=== PATIENT | female | born 1935 | race Caucasian/White ===

== ENCOUNTER 2022-08-18 13:01 | Outpatient (CLI) | payer MEDICARE, SELFPAY ==
--- NOTE | 2022-08-18 15:00 | CRLHL7_ITS ---
For Patients: As a result of the Century Cures Act, medical imaging exams and procedure reports are released immediately into your electronic medical record. You may view this report before your referring provider. If you have questions, please contact your health care provider. BILATERAL SCREENING MAMMOGRAM WITH COMPUTER-AIDED DETECTION TECHNIQUE: CC and MLO views were obtained. These mammographic images have been obtained using full-field digital technique. These mammographic images were interpreted with the benefit of computer-aided detection. COMPARISON FILM: [place]. FINDINGS: There are scattered areas of fibroglandular density IMPRESSION: There is no radiographic evidence for malignancy. ASSESSMENT: BI-RADS Category 1: Negative RECOMMENDATION: Routine screening mammogram in 1 year. A lay language report of this examination will be provided to the patient. Luis Regan M.D. Diagnostic Radiologist [email or web address] be/Dictated by: Luis Regan MD @ 09/08/2022 9:24:00 AM (Electronically Signed)
== END 2022-08-18 13:02 | disposition home or self-care (01) ==
LOC: MAMMO 13:05
PROVIDERS: PCP Internal Medicine; Visit Provider Internal Medicine
DX: Z12.31 Encounter for screening mammogram for malignant neoplasm of breast (principal)
CPT/HCPCS: 77067

== ENCOUNTER 2022-10-10 09:48 | Outpatient (CLI) | payer MEDICARE, SELFPAY ==
[2022-10-10 12:11] LABS: Albumin* 4.6 g/dL (3.3-5.0)
[2022-10-10 12:12] LABS: Chloride* 105 mmol/L (96-114); Potassium* 4.5 mmol/L (3.6-5.1); Sodium* 142 mmol/L (135-149)
[2022-10-10 12:14] LABS: Aspartate Amino Transferase* 39 U/L (12-35); Bilirubin Total* 0.5 mg/dL (0.1-1.5); Carbon Dioxide* 31 mmol/L (20-32); Creatinine* 0.7 mg/dL (0.5-1.5); Estimated Glomerular Filt Rate 85 ml/min; Total Protein* 7.1 g/dL (6.0-8.3)
[2022-10-10 12:15] LABS: Alanine Aminotransferase* 44 U/L (4-35); Alkaline Phosphatase* 94 U/L (40-150); Blood Urea Nitrogen* 22 mg/dL (7-30); Calcium* 10.4 mg/dL (8.4-10.6); Glucose* 117 mg/dL (60-115)
== END 2022-10-10 09:49 | disposition home or self-care (01) ==
PROVIDERS: PCP Internal Medicine; Visit Provider Internal Medicine
DX: E11.9 Type 2 diabetes mellitus without complications (principal); F41.9 Anxiety disorder, unspecified; E78.5 Hyperlipidemia, unspecified; G62.9 Polyneuropathy, unspecified
CPT/HCPCS: 80053; 84439; 84443

== ENCOUNTER 2023-04-18 14:21 | Emergency (ER) | payer MEDICARE, SELFPAY ==
[2023-04-18] VITALS (98 sets, daily range): BP systolic 78–180; BP diastolic 47–144; PULSE 47–154; RESP 18; TEMP 36.4; O2SAT 90–97
[2023-04-18] MEDS: ADENOSINE 6 MG/2ML INJ IVP (14:50)
[2023-04-18] MEDS: dilTIAZem 5 MG/ML inj 20 MG IVP (14:59)
--- NOTE | 2023-04-18 15:26 | ED.ARRPALP ---
HPI - Arrhythmia/Palpitations General Chief Complaint: Arrhythmia/Palpitations Stated Complaint: Heart flutter, dizzy Time Seen by Provider: 04/18/23 14:41 Source: patient Mode of arrival: ambulatory Limitations: no limitations History of Present Illness HPI narrative: Patient is a 89 year female with unknown if she does have proximal AFib but she is on Eliquis presenting to the emergency department for chest pressure and fatigue. She states symptoms have been going on all days and not getting better she can emergency department to be evaluated. This is a pressure sensation denies shortness of breath, weakness, numbness, abdominal pain, headache, lightheadedness, dizziness. Denies ever having symptoms like this before. States she was told before that she has AFib and a stolen O times she does not so she is not sure she does have it Related Data Home Medications Medication Instructions Recorded Confirmed coenzyme Q10 30 mg capsule mg PO DAILY 03/29/22 04/11/23 ferrous sulfate 325 mg (65 mg mg PO DAILY 03/29/22 04/11/23 iron) tablet CQ10 110 mg PO DAILY 10/10/22 04/11/23 Vitamin C 65 mg PO DAILY 10/10/22 04/11/23 melatonin 5 mg capsule 5 mg PO .HS PRN 10/10/22 04/11/23 multivitamin 1 tab PO QAM 10/10/22 04/11/23 vit C 250 mg-vit E 90 mg-zinc 40 1 tab PO BID 01/11/23 04/11/23 mg-copper 1 aq-bremgb-oxhcgf capsule (PreserVision AREDS-2) Previous Rx's Medication Instructions Recorded sulfacetamide sodium (acne) 10 % 1 applic topical BID #118 mL 03/29/22 lotion (suspension) (Klaron) minocycline 100 mg capsule 100 mg PO BID #180 caps 07/12/22 metoprolol succinate 25 mg 25 mg PO DAILY #90 tabs 10/18/22 tablet,extended release 24 hr rosuvastatin 40 mg tablet 40 mg PO DAILY Hyperlipidemia #90 10/25/22 tabs nirmatrelvir 150 mg-ritonavir 100 See Rx Instructions PO PER PKG DIR 01/11/23 mg tablets in a dose pack COVID 19 #20 ea (Paxlovid) apixaban 5 mg tablet 5 mg PO BID Atrial Fibrillation 05/25/23 #180 tabs Allergies Allergy/AdvReac Type Severity Reaction Status Date / Time No Known Allergies Allergy Unknown Verified 04/11/23 10:31 Review of Systems Status of ROS: Reports: 10 or more systems reviewed and unremarkable except as noted in History and below 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 - Articular disc disorder of temporomandibular joint, unspecified side (ICD-10) Health care maintenance ?Z00.00 - Encounter for general adult medical examination without abnormal findings (ICD-10) Surgical History (Updated 05/17/22 @ 13:22 by Giselle Cedillo) 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 - Presence of unspecified artificial shoulder joint (ICD-10) History of hysterectomy ?Z90.710 - Acquired absence of both cervix and uterus (ICD-10) History of bunionectomy ?Z98.890 - Other specified postprocedural states (ICD-10) Social History Smoking Status: Never smoker Non-prescribed substance use: denies use Little interest or pleasure in doing things: several days Feeling down, depressed, or hopeless: nearly every day Exam Narrative: Exam Narrative: Const: Well-nourished, Well-developed, in mild distress Eyes: PERRL, no conjunctival injection, and symmetrical lids ENMT: Atraumatic external nose and ears. Moist mucous membranes. Neck: Symmetric, trachea midline, No thyromegaly. CVS: Tachycardia, No murmurs or gallops. Peripheral pulses 2+ and equal in all extremities RESP: Unlabored respiratory effort. Clear to auscultation bilaterally. GI: Nontender/Nondistended, No rebound or guarding. MSK:Extremities w/o deformity, Normal Active ROM Skin: Warm, Dry. No rashes or lesions. Neuro: Normal Muscle tone, No focal neurological deficits. Psych: Awake, Alert, & Oriented x3. Appropriate mood and affect. Const: Vital Signs, click to edit/add: Vital Signs - 24 hr 04/18/23 14:36 04/18/23 14:57 04/18/23 14:58 Temperature 97.6 F Pulse Rate 139 H 105 H Pulse Rate [Left P ulse Oximeter] 140 H Respiratory Rate 18 Blood Pressure 171/144 H Blood Pressure [Le ft Upper Arm] 143/112 H Pulse Oximetry 93 92 94 Oxygen Delivery Me thod Room Air 04/18/23 14:59 04/18/23 15:00 04/18/23 15:02 Temperature Pulse Rate 109 H 154 H 120 H Pulse Rate [Left P ulse Oximeter] Respiratory Rate Blood Pressure 177/100 H 142/109 H Blood Pressure [Le ft Upper Arm] Pulse Oximetry 93 95 96 Oxygen Delivery Me thod 04/18/23 15:03 04/18/23 15:10 04/18/23 15:18 Temperature Pulse Rate 79 92 81 Pulse Rate [Left P ulse Oximeter] Respiratory Rate Blood Pressure 131/110 H Blood Pressure [Le ft Upper Arm] Pulse Oximetry 93 92 95 Oxygen Delivery Me thod 04/18/23 15:20 04/18/23 15:22 04/18/23 15:30 Temperature Pulse Rate 116 H 110 H 112 H Pulse Rate [Left P ulse Oximeter] Respiratory Rate Blood Pressure 123/70 Blood Pressure [Le ft Upper Arm] Pulse Oximetry 93 94 95 Oxygen Delivery Me thod 04/18/23 15:33 04/18/23 15:40 04/18/23 15:42 Temperature Pulse Rate 89 120 H 103 H Pulse Rate [Left P ulse Oximeter] Respiratory Rate Blood Pressure 137/95 H 139/113 H Blood Pressure [Le ft Upper Arm] Pulse Oximetry 95 97 93 Oxygen Delivery Me thod 04/18/23 15:50 04/18/23 15:52 04/18/23 15:59 Temperature Pulse Rate 80 96 Pulse Rate [Left P ulse Oximeter] Respiratory Rate Blood Pressure 156/68 H Blood Pressure [Le ft Upper Arm] Pulse Oximetry 92 92 95 Oxygen Delivery Me thod 04/18/23 16:00 04/18/23 16:02 Temperature Pulse Rate 93 89 Pulse Rate [Left P ulse Oximeter] Respiratory Rate Blood Pressure 157/69 H Blood Pressure [Le ft Upper Arm] Pulse Oximetry 92 94 Oxygen Delivery Me thod Course Vital Signs Vital signs: Initial Vital Signs Temperature 97.6 F 04/18/23 14:36 Temperature Source Temporal Artery Scan 04/18/23 14:36 Pulse Rate 140 H 04/18/23 14:36 Pulse Rhythm Irregular 04/18/23 14:36 Respiratory Rate 18 04/18/23 14:36 Blood Pressure 143/112 H 04/18/23 14:36 Blood Pressure Mean 122 H 04/18/23 14:36 Blood Pressure Position Sitting 04/18/23 14:36 Pulse Oximetry 93 04/18/23 14:36 Oxygen Delivery Method Room Air 04/18/23 14:36 Vital Signs Temperature 97.6 F 04/18/23 14:36 Pulse Rate 140 H 04/18/23 14:36 Respiratory Rate 18 04/18/23 14:36 Blood Pressure 143/112 H 04/18/23 14:36 Pulse Oximetry 93 04/18/23 14:36 Oxygen Delivery Method Room Air 04/18/23 14:36 Temperature 97.6 F 04/18/23 14:36 Pulse Rate 89 04/18/23 16:02 Respiratory Rate 18 04/18/23 14:36 Blood Pressure 157/69 H 04/18/23 16:02 Pulse Oximetry 94 04/18/23 16:02 Oxygen Delivery Method Room Air 04/18/23 14:36 MDM - Arrhythmia/Palpitations MDM Narrative Medical decision making narrative: Patient is a 87-year-old female is on clear history of AFib but she is on Eliquis. She is having chest pressure and fatigue. She 1st arrived emergency department her heart rate was in the 140s to 160s and then went up to 200. Initial EKG had unclear rhythm but when she went up to 200 it was clearly SVT. This time we gave her 6 mg of adenosine. After this her symptoms improved and her heart rate came down to the 120s to 150s. After the adenosine it did appear that she was in a flutter. This was seen on the monitor. We did multiple EKGs for were unable to get a clear a flutter like the monitor showed. She does states she is feeling better at this time. Since she still tachycardic with a flutter she was given a dose of Cardizem 20 mg. After this her heart rate will come down to the 90s for short period of time to go back up to the 130s. She will continue his pattern for an extended period of time we will put her on a Cardizem drip. After this Cardizem drip she continues same pattern of jumping between the 90s in 130s. I do believe she needs a higher level of care and Cardiology. I spoke to [facility] at 15:24 but he did not have any beds. This was her preferred spot. I then spoke to Dr. Mccormack who is in agreement that she patient could benefit from transfer. They have beds available at [facility]. She will not be with the transfer for 4 to 8 hours she recommends is have her on 10 mg of Cardizem drip and try 30 mg of short-acting Cardizem t.i.d. if patient does stabilize her heart rate she states patient can be discharged otherwise continue the transfer process. I spoke to Dr. Mason of [place]. He accepted the patient for admission. Patient family agree with this plan Lab Data Labs: Lab Results 04/18/23 Range/Units 13:25 WBC 6.00 (4.50-11.00) K/uL RBC 5.34 H (4.00-5.20) m/uL Hgb 14.7 (12.0-16.0) gm/dL Hct 45.8 (33.0-51.0) % MCV 86 (80-100) fL MCH 28 (26-34) pg MCHC 32 (32-36) gm/dL RDW Coeff of [place] 13.7 (11.5-15.5) % Plt Count 215 (140-440) K/uL Neut % (Auto) 71.6 (42.0-72.0) % Lymph % (Auto) 17.8 L (20-44) % [place] % (Auto) 9.3 (0.0-11.0) % Eos % (Auto) 0.8 (0.0-7.0) % Baso % (Auto) 0.2 (0.0-3.0) % Neut # (Auto) 4.29 (1.7-7.0) K/uL Lymph # (Auto) 1.10 (0.90-2.90) K/uL [place] # (Auto) 0.60 (0.00-0.90) K/UL Eos # (Auto) 0.05 (0.00-0.50) K/uL Baso # (Auto) 0.01 (0.00-0.30) K/uL Abs Immat Gran (auto) 0.02 (0.00-0.30) K/uL Imm/Tot Granulo (auto) 0.3 % Sodium 141 (135-149) mmol/L Potassium 3.5 L (3.6-5.1) mmol/L Chloride 103 (96-114) mmol/L Carbon Dioxide 31 (20-32) mmol/L BUN 17 (7-30) mg/dL Creatinine 0.6 (0.5-1.5) mg/dL Estimated GFR 88 ml/min Glucose 121 H (60-115) mg/dL Calcium 10.3 (8.4-10.6) mg/dL Total Bilirubin 0.3 (0.1-1.5) mg/dL AST 34 (12-35) U/L ALT 37 H (4-35) U/L Alkaline Phosphatase 117 (40-150) U/L Troponin I < 0.01 L (0.01-0.04) ng/mL Total Protein 7.9 (6.0-8.3) g/dL Albumin 4.7 (3.3-5.0) g/dL Critical Care Time Critical Care Time Critical Care Time: Yes Attestation: The patient required my highest level preparedness to intervene emergently and I personally spent this critical care time directly and personally managing the patient. This critical care time included: Obtaining a history; Examining the patient; Pulse oximetry; Ordering and reviewing of studies; Arranging urgent treatment with development of a management plan; Evaluation of patients response to treatment; Frequent reassessment discussions with other providers. This critical care time was performed to assess and manage the high probability of imminent life-threatening deterioration that could result in multiorgan failure. It was exclusive of separate billable procedures and treating other patients and teaching time. Total Critical Care Time in Minutes: 47 Discharge Plan Discharge Prescriptions: No Action coenzyme Q10 30 mg capsule PO DAILY ferrous sulfate 325 mg (65 mg iron) tablet PO DAILY sulfacetamide sodium (acne) [Klaron] 10 % suspension 1 applic topical BID Qty: 118 3RF minocycline 100 mg capsule 100 mg PO BID Qty: 180 2RF multivitamin Tablet 1 tab PO QAM melatonin 5 mg capsule 5 mg PO .HS PRN Vitamin C 65 mg PO DAILY CQ10 110 mg PO DAILY metoprolol succinate 25 mg tablet extended release 24 hr 25 mg PO DAILY Qty: 90 1RF rosuvastatin 40 mg tablet 40 mg PO DAILY Qty: 90 3RF PreserVision AREDS-2 250-90-40-1 mg capsule 1 tab PO BID Paxlovid 150-100 mg tablets,dose pack See Rx Instructions PO PER PKG DIR Qty: 20 0RF Rx Instructions: PO PER PKG DIR apixaban 5 mg tablet 5 mg PO BID Qty: 180 3RF Follow Up/Referrals: Jaret Sanchez MD [Primary Care Provider] -
[2023-04-18 15:45] LABS: Basophils Absolute Auto 0.01 K/uL (0.00-0.30); Basophils Percent Auto 0.2 % (0.0-3.0); Eosinophils Absolute Auto 0.05 K/uL (0.00-0.50); Eosinophils Percent Auto 0.8 % (0.0-7.0); Hematocrit 45.8 % (33.0-51.0); Hemoglobin* 14.7 gm/dL (12.0-16.0); Immature Granulocytes Abs Auto 0.02 K/uL (0.00-0.30); Immature Granulocytes Pct Auto 0.3 %; Lymphocytes Percent Auto 17.8 % (20-44); Mean Corpuscular HGB Conc 32 gm/dL (32-36); Mean Corpuscular Hemoglobin 28 pg (26-34); Mean Corpuscular Volume 86 fL (80-100); Monocytes Percent Auto 9.3 % (0.0-11.0); Neutrophils Absolute Auto 4.29 K/uL (1.7-7.0); Neutrophils Percent Auto 71.6 % (42.0-72.0); Platelet Count* 215 K/uL (140-440); RDW Coefficient of Variation % 13.7 % (11.5-15.5); Red Blood Count 5.34 m/uL (4.00-5.20)
[2023-04-18 15:50] LABS: Slide Review Reflex No
[2023-04-18] MEDS: dilTIAZem HCL 125 MG in 0.9 % SODIUM CHLORIDE 100 ml 100 ML IVPB (15:50)
--- NOTE | 2023-04-18 15:55 | ED.NURSE ---
Cardizem drip started 15:50
[2023-04-18 15:58] LABS: Albumin* 4.7 g/dL (3.3-5.0); Chloride* 103 mmol/L (96-114)
[2023-04-18 15:59] LABS: Potassium* 3.5 mmol/L (3.6-5.1); Sodium* 141 mmol/L (135-149)
[2023-04-18 16:01] LABS: Alkaline Phosphatase* 117 U/L (40-150); Aspartate Amino Transferase* 34 U/L (12-35); Bilirubin Total* 0.3 mg/dL (0.1-1.5); Blood Urea Nitrogen* 17 mg/dL (7-30); Carbon Dioxide* 31 mmol/L (20-32); Creatinine* 0.6 mg/dL (0.5-1.5); Estimated Glomerular Filt Rate 88 ml/min; Glucose* 121 mg/dL (60-115); Total Protein* 7.9 g/dL (6.0-8.3)
[2023-04-18 16:02] LABS: Alanine Aminotransferase* 37 U/L (4-35); Calcium* 10.3 mg/dL (8.4-10.6)
[2023-04-18 16:14] LABS: Troponin I* < 0.01 ng/mL (0.01-0.04)
[2023-04-18] MEDS: dilTIAZem HCL 125 MG in 0.9 % SODIUM CHLORIDE 100 ml 100 ML 10 MG IVPB (16:30)
[2023-04-18 17:16] LABS: Magnesium* 2.1 mg/dL (1.5-2.6)
[2023-04-18] MEDS: dilTIAZem 30 MG TABLET PO (17:16)
[2023-04-18 17:29] LABS: Appearance Urine Clear (Clear); Bilirubin Urine Negative (Negative); Blood Urine Negative (Negative); Color Urine Yellow (Yellow); Glucose Urine Negative (Negative); Ketones Urine Negative (Negative); Leukocyte Esterase Urine Negative (Negative); Nitrite Urine Negative (Negative); Protein Urine Negative (Negative); Urobilinogen Urine 0.2 (0.2-1.0); pH Urine 8.5 (5.0-8.5)
[2023-04-18 17:42] LABS: Amorphous Sediment Urine Few; RBC Urine 0-2 (0-2); WBC Urine 0-2 (0-5)
[2023-04-18] MEDS: APIXABAN 5 MG TABLET PO (19:56)
--- NOTE | 2023-04-18 20:41 | ED.NURSE ---
Per Dr. Rosas, Cardizem drip adjusted to 7.5 ml/hr related to softer blood pressures and liter of fluids administered.
[2023-04-18] MEDS: 0.9 % SODIUM CHLORIDE 1000 ml 1,000 ML IV (20:42)
--- NOTE | 2023-04-18 22:22 | ED.NURSE ---
Report called to [place] nurse, Susanna, at [phone]
== END 2023-04-18 22:41 | disposition short-term general hospital (02) ==
PROVIDERS: Student in an Organized Health Care Education/Training Program; Emergency Provider Family Medicine; PCP Internal Medicine
DX: R20.2 Paresthesia of skin (principal); R07.9 Chest pain, unspecified
CPT/HCPCS: 36415; 80053; 81001; 83735; 84484; 85025; 93005; 94761; 96365; 96366; 96375; 99284; 99291; A9270; J0153; J3490; J7030

== ENCOUNTER 2023-04-18 22:30 | Outpatient (CLI) | payer MEDICARE, SELFPAY | END 2023-04-18 22:31 | disposition home or self-care (01) | LOC: AMB 04-19 16:16 | PROVIDERS: PCP Internal Medicine; Visit Provider Family Medicine | DX: I48.92 Unspecified atrial flutter (principal) | CPT/HCPCS: A0425; A0434 ==

== ENCOUNTER 2023-05-01 06:18 | Emergency (ER) | payer MEDICARE, SELFPAY ==
[2023-05-01] VITALS (26 sets, daily range): BP systolic 59–144; BP diastolic 36–114; PULSE 41–122; RESP 16–18; TEMP 36.7; O2SAT 86–98; BMI 29.2
--- NOTE | 2023-05-01 06:51 | CRLHL7_ITS ---
For Patients: As a result of the Cures Act, medical imaging exams and procedure reports are released immediately into your electronic medical record. You may view this report before your referring provider. If you have questions, please contact your health care provider. INDICATION: Atrial fibrillation COMPARISON: None TECHNIQUE: PA and lateral views of the chest were acquired FINDINGS: TUBES AND LINES: None. HEART AND MEDIASTINUM: Top-normal size heart.. LUNGS AND PLEURAL SPACES: The lungs appear normal.The pleural spaces are unremarkable. OSSEOUS STRUCTURES: Demineralization and degenerative change para or rib fractures. Kyphosis. Left shoulder arthroplasty IMPRESSION: Top-normal size heart. No evidence of active pulmonary disease. Dictated by Ranjan Yates MD @ 05/01/2023 7:30:05 AM (Electronically Signed)
--- NOTE | 2023-05-01 06:57 | ED_ITS ---
HPI - Arrhythmia/Palpitations General Chief Complaint: Arrhythmia/Palpitations <Macarena Nunes MD - Last Filed: 05/01/23 08:15> Stated Complaint: AFIB - heavy chest no pain <Macarena Nunes MD - Last Filed: 05/01/23 08:15> Time Seen by Provider: 05/01/23 06:35 <Macarena Nunes MD - Last Filed: 05/01/23 08:15> Source: patient and family <Macarena Nunes MD - Last Filed: 05/01/23 08:15> Mode of arrival: ambulatory <Macarena Nunes MD - Last Filed: 05/01/23 08:15> Limitations: no limitations <Macarena Nnues MD - Last Filed: 05/01/23 08:15> History of Present Illness HPI narrative: 87-year-old female with notable prior known history of atrial fibrillation presents the emergency department with a 4 hour history of chest heaviness. No chest pain, dyspnea, orthopnea. She reports that her symptoms were noted upon awakening at 2:30 a.m. this morning. She went to bed normally at 9:30 a.m. last night, asymptomatic. She was evaluated in the emergency department about 2 weeks ago for arrhythmia, was found to be in a flutter that deteriorated into SVT. Responded with adenosine back to atrial flutter. Eventually her heart rate improved on diltiazem and she was able to be transferred to [facility] where she did spontaneously convert on the diltiazem drip. Since that time she has been on increased dose of metoprolol 100 mg extended release once daily which she did take this morning already. She had previously been on 25 mg. She is anticoagulated on Eliquis twice daily and has been so for 4-5 years. She does believe she had an echo while hospitalized, no recent stress test. She has an outpatient follow-up with Cardiology in about 4 weeks. She denies any prior cardioversion. No prior history of coronary artery disease. She is a nonsmoker. Denies intoxication. She has not tried any interventions to help with her symptoms this morning. She has had a skilled nursing professional placed for the past 10 days since she was discharged from [facility]. She reports that she has had a couple of short lived events of rapid heart rate and she has pressed her event monitor for those episodes. No chest heaviness since discharge until today. Past medical history notable for AFib, recent wrist fracture, obstructive sleep apnea, hyperlipidemia. Home medications are metoprolol 100 mg extended release once daily, rosuvastatin, Eliquis and vitamin supplements. Socially she is a nonsmoker, , accompanied by family today. ROS is notable for the chest heaviness as above only accompanied by feeling of rapid heart rate but otherwise denies times 12 systems. <Macarena Nunes MD - Last Filed: 05/01/23 08:15> Related Data Home Medications: Home Medications Medication Instructions Recorded Confirmed coenzyme Q10 30 mg capsule mg PO DAILY 03/29/22 04/24/23 ferrous sulfate 325 mg (65 mg mg PO DAILY 03/29/22 04/24/23 iron) tablet CQ10 110 mg PO DAILY 10/10/22 04/24/23 Vitamin C 65 mg PO DAILY 10/10/22 04/24/23 melatonin 5 mg capsule 5 mg PO .HS PRN 10/10/22 04/24/23 multivitamin 1 tab PO QAM 10/10/22 04/24/23 vit C 250 mg-vit E 90 mg-zinc 40 1 tab PO BID 01/11/23 04/24/23 mg-copper 1 [id number] capsule (PreserVision AREDS-2) metoprolol succinate 25 mg See Rx Instructions PO DAILY 04/24/23 tablet,extended release 24 hr Previous Rx's Medication Instructions Recorded sulfacetamide sodium (acne) 10 % 1 applic topical BID #118 mL 03/29/22 lotion (suspension) (Klaron) minocycline 100 mg capsule 100 mg PO BID #180 caps 07/12/22 rosuvastatin 40 mg tablet 40 mg PO DAILY Hyperlipidemia #90 10/25/22 tabs nirmatrelvir 150 mg-ritonavir 100 See Rx Instructions PO PER PKG DIR 01/11/23 mg tablets in a dose pack COVID 19 #20 ea (Paxlovid) apixaban 5 mg tablet 5 mg PO BID Atrial Fibrillation 04/24/23 #180 tabs metoprolol succinate 100 mg 100 mg PO QDAY Atrial Fibrillation 04/24/23 tablet,extended release 24 hr #90 tabs (Toprol XL) <Macarena Nunes MD - Last Filed: 05/01/23 08:15> Allergies/Adverse Reactions: Allergies Allergy/AdvReac Type Severity Reaction Status Date / Time No Known Allergies Allergy Unknown Verified 04/24/23 14:34 <Macarena Nunes MD - Last Filed: 05/01/23 08:15> [facility] Medical History: Medical History SVT (supraventricular tachycardia) ?I47.1 - Supraventricular tachycardia (ICD-10) Paroxysmal atrial fibrillation ?I48.0 - Paroxysmal atrial fibrillation (ICD-10) Hyperlipidemia ?E78.5 - Hyperlipidemia, unspecified (ICD-10) Atrial flutter ?I48.92 - Unspecified atrial flutter (ICD-10) Fracture of wrist ?S62.109A - Fracture of unspecified carpal bone, unspecified wrist, initial encounter for closed fracture (ICD-10) Knee pain ?M25.569 - Pain in unspecified knee (ICD-10) Wrist pain ?M25.539 - Pain in unspecified wrist (ICD-10) COVID-19 ?U07.1 - COVID-19 (ICD-10) 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 - Articular disc disorder of temporomandibular joint, unspecified side (ICD-10) Health care maintenance ?Z00.00 - Encounter for general adult medical examination without abnormal findings (ICD-10) <Macarena Nunes MD - Last Filed: 05/01/23 08:15> Surgical History: Surgical History 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 - Presence of unspecified artificial shoulder joint (ICD-10) History of hysterectomy ?Z90.710 - Acquired absence of both cervix and uterus (ICD-10) History of bunionectomy ?Z98.890 - Other specified postprocedural states (ICD-10) <Macarena Nunes MD - Last Filed: 05/01/23 08:15> Social History: Social History Smoking Status: Never smoker How often do you have a drink containing alcohol: never How often do you have six or more drinks on one occasion: Never AUDIT-C Alcohol total score: 0 Non-prescribed substance use: denies use Little interest or pleasure in doing things: several days Feeling down, depressed, or hopeless: nearly every day <Macarena Nunes MD - Last Filed: 05/01/23 08:15> Exam Const: Vital Signs, click to edit/add: Vital Signs - 24 hr 05/01/23 06:30 05/01/23 06:30 05/01/23 06:31 Temperature 98.1 F Pulse Rate Pulse Rate [Left P ulse Oximeter] 111 H 122 H Respiratory Rate 18 18 Blood Pressure Blood Pressure [Le ft Upper Arm] 117/74 135/114 H Pulse Oximetry 95 98 94 Oxygen Delivery Me thod Room Air Room Air 05/01/23 06:46 05/01/23 07:01 05/01/23 07:02 Temperature Pulse Rate 85 94 118 H Pulse Rate [Left P ulse Oximeter] Respiratory Rate 16 16 Blood Pressure 132/90 H 126/93 H Blood Pressure [Le ft Upper Arm] Pulse Oximetry 96 94 94 Oxygen Delivery Me thod 05/01/23 07:30 05/01/23 07:32 05/01/23 07:47 Temperature Pulse Rate 78 93 92 Pulse Rate [Left P ulse Oximeter] Respiratory Rate Blood Pressure 125/71 107/63 Blood Pressure [Le ft Upper Arm] Pulse Oximetry 93 94 91 Oxygen Delivery Me thod 05/01/23 07:59 05/01/23 08:00 05/01/23 08:01 Temperature Pulse Rate 93 97 81 Pulse Rate [Left P ulse Oximeter] Respiratory Rate Blood Pressure 129/91 H 133/87 Blood Pressure [Le ft Upper Arm] Pulse Oximetry 97 97 97 Oxygen Delivery Me thod 05/01/23 08:17 05/01/23 08:22 05/01/23 08:23 Temperature Pulse Rate 115 H 110 H 97 Pulse Rate [Left P ulse Oximeter] Respiratory Rate Blood Pressure 144/100 H 138/114 H Blood Pressure [Le ft Upper Arm] Pulse Oximetry 97 95 93 Oxygen Delivery Me thod 05/01/23 08:30 05/01/23 08:31 05/01/23 08:32 Temperature Pulse Rate 45 L 56 L 41 L Pulse Rate [Left P ulse Oximeter] Respiratory Rate Blood Pressure 70/36 L 59/48 L Blood Pressure [Le ft Upper Arm] Pulse Oximetry 96 97 98 Oxygen Delivery Me thod 05/01/23 08:33 05/01/23 08:36 05/01/23 08:40 Temperature Pulse Rate 69 113 H 113 H Pulse Rate [Left P ulse Oximeter] Respiratory Rate Blood Pressure 81/52 L 115/82 107/83 Blood Pressure [Le ft Upper Arm] Pulse Oximetry 96 90 86 L Oxygen Delivery Me thod 05/01/23 08:41 05/01/23 08:47 05/01/23 08:48 Temperature Pulse Rate 100 81 94 Pulse Rate [Left P ulse Oximeter] Respiratory Rate Blood Pressure 108/75 130/71 Blood Pressure [Le ft Upper Arm] Pulse Oximetry 91 88 92 Oxygen Delivery Me thod 05/01/23 08:52 05/01/23 09:00 05/01/23 09:02 Temperature Pulse Rate 98 77 85 Pulse Rate [Left P ulse Oximeter] Respiratory Rate Blood Pressure 116/70 136/67 Blood Pressure [Le ft Upper Arm] Pulse Oximetry 96 94 95 Oxygen Delivery Me thod <Macarena Nunes MD - Last Filed: 05/01/23 08:15> Vital Signs, click to edit/add: Vital Signs - 24 hr 05/01/23 06:30 05/01/23 06:30 05/01/23 06:31 Temperature 98.1 F Pulse Rate Pulse Rate [Left P ulse Oximeter] 111 H 122 H Respiratory Rate 18 18 Blood Pressure Blood Pressure [Le ft Upper Arm] 117/74 135/114 H Pulse Oximetry 95 98 94 Oxygen Delivery Me thod Room Air Room Air 05/01/23 06:46 05/01/23 07:01 05/01/23 07:02 Temperature Pulse Rate 85 94 118 H Pulse Rate [Left P ulse Oximeter] Respiratory Rate 16 16 Blood Pressure 132/90 H 126/93 H Blood Pressure [Le ft Upper Arm] Pulse Oximetry 96 94 94 Oxygen Delivery Me thod 05/01/23 07:30 05/01/23 07:32 05/01/23 07:47 Temperature Pulse Rate 78 93 92 Pulse Rate [Left P ulse Oximeter] Respiratory Rate Blood Pressure 125/71 107/63 Blood Pressure [Le ft Upper Arm] Pulse Oximetry 93 94 91 Oxygen Delivery Me thod 05/01/23 07:59 05/01/23 08:00 05/01/23 08:01 Temperature Pulse Rate 93 97 81 Pulse Rate [Left P ulse Oximeter] Respiratory Rate Blood Pressure 129/91 H 133/87 Blood Pressure [Le ft Upper Arm] Pulse Oximetry 97 97 97 Oxygen Delivery Me thod 05/01/23 08:17 05/01/23 08:22 05/01/23 08:23 Temperature Pulse Rate 115 H 110 H 97 Pulse Rate [Left P ulse Oximeter] Respiratory Rate Blood Pressure 144/100 H 138/114 H Blood Pressure [Le ft Upper Arm] Pulse Oximetry 97 95 93 Oxygen Delivery Me thod 05/01/23 08:30 05/01/23 08:31 05/01/23 08:32 Temperature Pulse Rate 45 L 56 L 41 L Pulse Rate [Left P ulse Oximeter] Respiratory Rate Blood Pressure 70/36 L 59/48 L Blood Pressure [Le ft Upper Arm] Pulse Oximetry 96 97 98 Oxygen Delivery Me thod 05/01/23 08:33 05/01/23 08:36 05/01/23 08:40 Temperature Pulse Rate 69 113 H 113 H Pulse Rate [Left P ulse Oximeter] Respiratory Rate Blood Pressure 81/52 L 115/82 107/83 Blood Pressure [Le ft Upper Arm] Pulse Oximetry 96 90 86 L Oxygen Delivery Me thod 05/01/23 08:41 05/01/23 08:47 05/01/23 08:48 Temperature Pulse Rate 100 81 94 Pulse Rate [Left P ulse Oximeter] Respiratory Rate Blood Pressure 108/75 130/71 Blood Pressure [Le ft Upper Arm] Pulse Oximetry 91 88 92 Oxygen Delivery Me thod 05/01/23 08:52 05/01/23 09:00 05/01/23 09:02 Temperature Pulse Rate 98 77 85 Pulse Rate [Left P ulse Oximeter] Respiratory Rate Blood Pressure 116/70 136/67 Blood Pressure [Le ft Upper Arm] Pulse Oximetry 96 94 95 Oxygen Delivery Me thod <Clover Alanis MD - Last Filed: 05/01/23 09:27> Documenting provider has reviewed patient's vital signs: yes <Macarena Nunes MD - Last Filed: 05/01/23 08:15> Common normals: no apparent distress <MD Arina [facility] Last Filed: 05/01/23 08:15> General appearance: cooperative, comfortable and well kempt <MD Arina [facility] Last Filed: 05/01/23 08:15> Other: Good historian. <MD Arina [facility] Last Filed: 05/01/23 08:15> HENMT: Common normals: normocephalic and head/scalp atraumatic <MD Arina [facility] Last Filed: 05/01/23 08:15> Head and scalp: normocephalic and atraumatic <MD Arina [facility] Last Filed: 05/01/23 08:15> Mouth: oral and palatal mucosa normal <MD Arina Sampson Last Filed: 05/01/23 08:15> Throat: posterior oropharynx normal <MD Arina Sampson Last Filed: 05/01/23 08:15> Eye: Common normals: conjunctivae normal <MD Arina Sampson Last Filed: 05/01/23 08:15> General eye: normal appearance of both eyes <MD Arina Sampson Last Filed: 05/01/23 08:15> Conjunctiva: conjunctiva(e) normal <MD Arina Sampson Last Filed: 05/01/23 08:15> Neck & C-Spine: Common normals: full ROM and no lymphadenopathy <MD Arina Sam[facility] Last Filed: 05/01/23 08:15> Resp: Common normals: normal respiratory effort, no use of accessory muscles and clear to auscultation bilaterally <MD Arina Sampson Last Filed: 05/01/23 08:15> Effort & inspection: able to speak in complete sentences <MD Arina Sampson Last Filed: 05/01/23 08:15> Auscultation: clear to auscultation bilaterally <MD Arnia Sam[facility] Last Filed: 05/01/23 08:15> Cardio: Other: Irregular rate and rhythm, irregularly irregular. No obvious murmurs. Positive S1 and S2 are heard with no obvious gallop. <Macarena Nunes MD - Last Filed: 05/01/23 08:15> GI: Common normals: Normal to inspection, nondistended, normoactive bowel sounds present, soft to palpation, no hepatosplenomegaly and no masses <MD Arina Sampson Last Filed: 05/01/23 08:15> Palpation: soft and no hepatosplenomegaly <MD Arina Sampson Last Filed: 05/01/23 08:15> Extremity: Common normals: normal to inspection, normal capillary refill and no pedal edema <MD Arina Sampson Last Filed: 05/01/23 08:15> Neuro: Speech: speech normal <MD Arina Sampson Last Filed: 05/01/23 08:15> Gait (neuro): normal gait <MD Arina Sampson Last Filed: 05/01/23 08:15> Motor exam: strength 5/5 throughout and no movement abnormalities noted <MD Arina Sampson Last Filed: 05/01/23 08:15> Psych: Appearance: well kempt <Macarena Nunes MD - Last Filed: 05/01/23 08:15> Attitude: calm and engaged <MD Arina Sampson Last Filed: 05/01/23 08:15> Activity/motor behavior: appropriate eye contact <MD Arina Sampson Last Filed: 05/01/23 08:15> Insight: insight good <MD Arina Sampson Last Filed: 05/01/23 08:15> Judgement: judgment good <MD Arina Sampson Last Filed: 05/01/23 08:15> Skin: Common normals: no rashes or lesions noted <MD Arina Sampson Last Filed: 05/01/23 08:15> General skin exam: no rashes or lesions noted <MD Arina Sampson Last Filed: 05/01/23 08:15> Course Course Hospital Course: Differential diagnosis including multiple different arrhythmias including AFib, a flutter, SVT again, cannot exclude acute coronary syndrome, pulmonary process, electrolyte abnormality, dehydration or other etiology. I reviewed the EKG and it is quite clear that this is atrial fibrillation with rapid ventricular response. Will place an IV, bolus 500 of normal saline, 10 mg of IV diltiazem and 1 g of Mag. Chest x-ray, basic labs. If this is not successful in conversion, will consult Cardiology. <Macarena Nunes MD - Last Filed: 05/01/23 08:15> Reevaluation(s) Time of Reevaluation #1: 08:11 <Macarena Nunes MD - Last Filed: 05/01/23 08:15> Reevaluation #1: Patient did have rate improvement on the diltiazem and felt much better, did not convert to sinus rhythm. Has completed her 1 g of magnesium as well. I spoke with Dr. Marrero from Cardiology. He is recommending an amiodarone IV load. He suspects she may convert just with the amiodarone. If not, he would like her cardioverted. Once this is successful, she will need to be discharged on amiodarone 400 mg twice daily for 2 weeks, then tapering to 200 mg twice daily for 1 week and then 200 mg once daily, keeping her outpatient cardiology appointment as is planned in 6 weeks. She will continue wearing her event monitor as well. She will continue on her metoprolol 100 mg extended release once daily as well as her Eliquis. <Macarena Nunes MD - Last Filed: 05/01/23 08:15> Reevaluation #2: IV amiodarone was started in approximately after 20 mL of the medication patient began to feel flushed and confused. Her blood pressure dropped to 60 systolic. Amiodarone was immediately discontinued, patient was placed in Trendelenburg position, a 250 mL bolus of normal saline was given and a 2nd IV was placed. Anesthesia was urgently called to the ER for a potential cardioversion. However, after approximately 5 minutes her blood pressure did come up to 85 systolic and she was starting to feel better. Her rhythm fluctuated between normal sinus rhythm and atrial flutter with a pulse of around 85-120. After approximately 20 minutes her blood pressure had come up to 110 systolic. I did speak to Dr. Cai who was in agreement that the patient should be transferred to [place] for cardiology care. At this time I do not recommend cardioversion given that the patient is now hemodynamically stable, feeling significantly better and given the fact that she cardiovert on her own back and forth every few minutes I do not think that electric cardioversion would give her any sustaining results. Lastly, because patient ate approximately 4 hours ago she will need to be intubated for this procedure and I do not think that the benefits outweigh the risk at this moment in time. Should she become unstable, her blood pressure dropped or she starts to feel unwell again this is certainly something we will consider. In the meantime, given that the patient is currently stable, we will await transfer to [place]. <Clover Alanis MD - Last Filed: 05/01/23 09:27> Vital Signs Vital signs: Initial Vital Signs Temperature Source Temporal Artery Scan 05/01/23 06:30 Pulse Rate 111 H 05/01/23 06:30 Pulse Rhythm Irregular 05/01/23 06:30 Respiratory Rate 18 05/01/23 06:30 Respiratory Effort Normal, Spontaneous, Non-Labored 05/01/23 06:30 Respiratory Depth Normal 05/01/23 06:30 Blood Pressure 117/74 05/01/23 06:30 Blood Pressure Mean 88 05/01/23 06:30 Blood Pressure Position Sitting 05/01/23 06:30 Pulse Oximetry 95 05/01/23 06:30 Oxygen Delivery Method Room Air 05/01/23 06:30 Vital Signs Pulse Rate 111 H 05/01/23 06:30 Respiratory Rate 18 05/01/23 06:30 Blood Pressure 117/74 05/01/23 06:30 Pulse Oximetry 95 05/01/23 06:30 Oxygen Delivery Method Room Air 05/01/23 06:30 Temperature 98.1 F 05/01/23 06:31 Pulse Rate 85 05/01/23 09:02 Respiratory Rate 16 05/01/23 07:01 Blood Pressure 136/67 05/01/23 09:02 Pulse Oximetry 95 05/01/23 09:02 Oxygen Delivery Method Room Air 05/01/23 06:31 <Macarena Nunes MD - Last Filed: 05/01/23 08:15> Initial Vital Signs Temperature Source Temporal Artery Scan 05/01/23 06:30 Pulse Rate 111 H 05/01/23 06:30 Pulse Rhythm Irregular 05/01/23 06:30 Respiratory Rate 18 05/01/23 06:30 Respiratory Effort Normal, Spontaneous, Non-Labored 05/01/23 06:30 Respiratory Depth Normal 05/01/23 06:30 Blood Pressure 117/74 05/01/23 06:30 Blood Pressure Mean 88 05/01/23 06:30 Blood Pressure Position Sitting 05/01/23 06:30 Pulse Oximetry 95 05/01/23 06:30 Oxygen Delivery Method Room Air 05/01/23 06:30 Vital Signs Pulse Rate 111 H 05/01/23 06:30 Respiratory Rate 18 05/01/23 06:30 Blood Pressure 117/74 05/01/23 06:30 Pulse Oximetry 95 05/01/23 06:30 Oxygen Delivery Method Room Air 05/01/23 06:30 Temperature 98.1 F 05/01/23 06:31 Pulse Rate 85 05/01/23 09:02 Respiratory Rate 16 05/01/23 07:01 Blood Pressure 136/67 05/01/23 09:02 Pulse Oximetry 95 05/01/23 09:02 Oxygen Delivery Method Room Air 05/01/23 06:31 <Clover Alanis MD - Last Filed: 05/01/23 09:27> MDM - Arrhythmia/Palpitations Medical Records Attestation: I reviewed the patient's medical records. (Cardiology notes from 04/19 at [facility]) <Macarena Nunes MD - Last Filed: 05/01/23 08:15> Lab Data Attestation: I reviewed the patient's lab results. <Macarena Nunes MD - Last Filed: 05/01/23 08:15> Lab results narrative: All normal, as expected <Macarena Nunes MD - Last Filed: 05/01/23 08:15> Labs: Lab Results 05/01/23 Range/Units 06:30 WBC 6.23 (4.50-11.00) K/uL RBC 5.28 H (4.00-5.20) m/uL Hgb 14.5 (12.0-16.0) gm/dL Hct 45.8 (33.0-51.0) % MCV 87 (80-100) fL MCH 28 (26-34) pg MCHC 32 (32-36) gm/dL RDW Coeff of Luther 13.9 (11.5-15.5) % Plt Count 210 (140-440) K/uL Neut % (Auto) 65.6 (42.0-72.0) % Lymph % (Auto) 20.4 (20-44) % [place] % (Auto) 11.9 H (0.0-11.0) % Eos % (Auto) 1.3 (0.0-7.0) % Baso % (Auto) 0.5 (0.0-3.0) % Neut # (Auto) 4.09 (1.7-7.0) K/uL Lymph # (Auto) 1.27 (0.90-2.90) K/uL [place] # (Auto) 0.70 (0.00-0.90) K/UL Eos # (Auto) 0.08 (0.00-0.50) K/uL Baso # (Auto) 0.03 (0.00-0.30) K/uL Abs Immat Gran (auto) 0.02 (0.00-0.30) K/uL Imm/Tot Granulo (auto) 0.3 % Sodium 141 (135-149) mmol/L Potassium 4.0 (3.6-5.1) mmol/L Chloride 107 (96-114) mmol/L Carbon Dioxide 29 (20-32) mmol/L BUN 23 (7-30) mg/dL Creatinine 0.6 (0.5-1.5) mg/dL Estimated Creat Clear 35.52 Estimated GFR 88 ml/min Glucose 121 H (60-115) mg/dL Calcium 9.9 (8.4-10.6) mg/dL Magnesium 2.2 (1.5-2.6) mg/dL POC Troponin I 0.00 L (0.01-0.04) ng/ml <Macarena Nunes MD - Last Filed: 05/01/23 08:15> Lab Results 05/01/23 Range/Units 06:30 WBC 6.23 (4.50-11.00) K/uL RBC 5.28 H (4.00-5.20) m/uL Hgb 14.5 (12.0-16.0) gm/dL Hct 45.8 (33.0-51.0) % MCV 87 (80-100) fL MCH 28 (26-34) pg MCHC 32 (32-36) gm/dL RDW Coeff of Luther 13.9 (11.5-15.5) % Plt Count 210 (140-440) K/uL Neut % (Auto) 65.6 (42.0-72.0) % Lymph % (Auto) 20.4 (20-44) % [place] % (Auto) 11.9 H (0.0-11.0) % Eos % (Auto) 1.3 (0.0-7.0) % Baso % (Auto) 0.5 (0.0-3.0) % Neut # (Auto) 4.09 (1.7-7.0) K/uL Lymph # (Auto) 1.27 (0.90-2.90) K/uL [place] # (Auto) 0.70 (0.00-0.90) K/UL Eos # (Auto) 0.08 (0.00-0.50) K/uL Baso # (Auto) 0.03 (0.00-0.30) K/uL Abs Immat Gran (auto) 0.02 (0.00-0.30) K/uL Imm/Tot Granulo (auto) 0.3 % Sodium 141 (135-149) mmol/L Potassium 4.0 (3.6-5.1) mmol/L Chloride 107 (96-114) mmol/L Carbon Dioxide 29 (20-32) mmol/L BUN 23 (7-30) mg/dL Creatinine 0.6 (0.5-1.5) mg/dL Estimated Creat Clear 35.52 Estimated GFR 88 ml/min Glucose 121 H (60-115) mg/dL Calcium 9.9 (8.4-10.6) mg/dL Magnesium 2.2 (1.5-2.6) mg/dL POC Troponin I 0.00 L (0.01-0.04) ng/ml <Clover Alanis MD - Last Filed: 05/01/23 09:27> Imaging Data Chest x-ray: Attestation: I have reviewed the pertinent imaging results. <Macarena Nunes MD - Last Filed: 05/01/23 08:15> My impression: Normal chest x-ray <Macarena Nunes MD - Last Filed: 05/01/23 08:15> Radiologist's impression: IMPRESSION: Top-normal size heart. No evidence of active pulmonary disease. <Macarena Nunes MD - Last Filed: 05/01/23 08:15> ECG Data Attestation: I personally reviewed and interpreted this ECG as follows: <Macarena Nunes MD - Last Filed: 05/01/23 08:15> ECG interpretation date: 05/01/23 <Macarena Nunes MD - Last Filed: 05/01/23 08:15> ECG interpretation time: 07:04 <Macarena Nunes MD - Last Filed: 05/01/23 08:15> Prior ECG tracings: available for review (04/19) <Macarena Nunes MD - Last Filed: 05/01/23 08:15> Interpretation: Atrial fibrillation with RVR. Irregularly irregular rhythm varying between 120 and 130 which is similar to what I see on the rhythm strip while we are conversing as well. Laterally changes are similar to previous EKG when she was in atrial flutter. <Macarena Nunes MD - Last Filed: 05/01/23 08:15> Discharge Plan Discharge Clinical Impression: Atrial fibrillation with rapid ventricular response, Atrial flutter <Macarena Nunes MD - Last Filed: 05/01/23 08:15> Patient Disposition: [facility] <Macarena Nunes MD - Last Filed: 05/01/23 08:15> Condition: Stable <Macarena Nunes MD - Last Filed: 05/01/23 08:15> Prescriptions: No Action coenzyme Q10 30 mg capsule PO DAILY ferrous sulfate 325 mg (65 mg iron) tablet PO DAILY sulfacetamide sodium (acne) [Klaron] 10 % suspension 1 applic topical BID Qty: 118 3RF minocycline 100 mg capsule 100 mg PO BID Qty: 180 2RF multivitamin Tablet 1 tab PO QAM melatonin 5 mg capsule 5 mg PO .HS PRN Vitamin C 65 mg PO DAILY CQ10 110 mg PO DAILY metoprolol succinate 25 mg tablet extended release 24 hr See Rx Instructions PO DAILY Rx Instructions: 100 mg (1 tab) orally daily; metoprolol succinate [Toprol XL] 100 mg tablet extended release 24 hr 100 mg PO QDAY Qty: 90 3RF apixaban 5 mg tablet 5 mg PO BID Qty: 180 3RF rosuvastatin 40 mg tablet 40 mg PO DAILY Qty: 90 3RF PreserVision AREDS-2 250-90-40-1 mg capsule 1 tab PO BID Paxlovid 150-100 mg tablets,dose pack See Rx Instructions PO PER PKG DIR Qty: 20 0RF Rx Instructions: PO PER PKG DIR <Macarena Nunes MD - Last Filed: 05/01/23 08:15> Follow Up/Referrals: Jaret Sanchez MD [Primary Care Provider] - <Macarena Nunes MD - Last Filed: 05/01/23 08:15> Stand Alone Forms: [facility] Info Instructions <Macarena Nunes MD - Last Filed: 05/01/23 08:15>
[2023-05-01] MEDS: dilTIAZem 5 MG/ML inj 10 MG IVP (06:58)
[2023-05-01] MEDS: 0.9 % SODIUM CHLORIDE 500 ML 500 ML IV (06:58)
[2023-05-01 07:06] LABS: Basophils Absolute Auto 0.03 K/uL (0.00-0.30); Basophils Percent Auto 0.5 % (0.0-3.0); Eosinophils Absolute Auto 0.08 K/uL (0.00-0.50); Eosinophils Percent Auto 1.3 % (0.0-7.0); Hematocrit 45.8 % (33.0-51.0); Hemoglobin* 14.5 gm/dL (12.0-16.0); Immature Granulocytes Abs Auto 0.02 K/uL (0.00-0.30); Immature Granulocytes Pct Auto 0.3 %; Lymphocytes Absolute Auto 1.27 K/uL (0.90-2.90); Lymphocytes Percent Auto 20.4 % (20-44); Mean Corpuscular HGB Conc 32 gm/dL (32-36); Mean Corpuscular Hemoglobin 28 pg (26-34); Mean Corpuscular Volume 87 fL (80-100); Monocytes Percent Auto 11.9 % (0.0-11.0); Neutrophils Absolute Auto 4.09 K/uL (1.7-7.0); Neutrophils Percent Auto 65.6 % (42.0-72.0); Platelet Count* 210 K/uL (140-440); RDW Coefficient of Variation % 13.9 % (11.5-15.5); Red Blood Count 5.28 m/uL (4.00-5.20); White Blood Count* 6.23 K/uL (4.50-11.00)
[2023-05-01 07:10] LABS: Slide Review Reflex No
[2023-05-01 07:17] LABS: Chloride* 107 mmol/L (96-114); Sodium* 141 mmol/L (135-149)
[2023-05-01 07:20] LABS: Creatinine* 0.6 mg/dL (0.5-1.5); Est. Creatinine Clearance* 35.52; Estimated Glomerular Filt Rate 88 ml/min
[2023-05-01 07:21] LABS: Blood Urea Nitrogen* 23 mg/dL (7-30); Calcium* 9.9 mg/dL (8.4-10.6); Carbon Dioxide* 29 mmol/L (20-32); Glucose* 121 mg/dL (60-115); Magnesium* 2.2 mg/dL (1.5-2.6)
[2023-05-01] MEDS: AMIODARONE 50 MG/ML inj 150 MG in 5 % DEXTROSE 100 ML 100 ML 618 MG IVPB (08:19)
--- NOTE | 2023-05-01 08:46 | ED.NURSE ---
Initiated amiodarone drip per NOV instructions. Patient became flushed, stated she was feeling fuzzy, and that she was going to be incontinent. Infusion stopped, blood pressure obtained. She was hypotensive. Rechecked BP. Hypotensive. Alerted provider and charge nurse. Patient placed in trendelenburg position, IV fluids initiated. Recheck of blood pressure 116 systolic and patient now without symptoms. Another IV started.
--- NOTE | 2023-05-01 09:19 | ED.NURSE ---
Nurse to nurse report given to TORITO Russell at [facility].
== END 2023-05-01 09:42 | disposition short-term general hospital (02) ==
PROVIDERS: Family Medicine; Emergency Provider Family Medicine; PCP Internal Medicine
DX: I48.20 Chronic atrial fibrillation, unspecified (principal); I48.92 Unspecified atrial flutter
CPT/HCPCS: 36415; 71046; 80048; 83735; 84484; 85025; 93005; 94761; 96365; 96366; 99285; J0282; J3475; J7120

== ENCOUNTER 2023-05-01 09:24 | Outpatient (CLI) | payer MEDICARE, SELFPAY | END 2023-05-01 09:25 | disposition home or self-care (01) | LOC: AMB 05-04 12:11 | PROVIDERS: PCP Internal Medicine; Visit Provider Family Medicine | DX: I48.91 Unspecified atrial fibrillation (principal); I49.9 Cardiac arrhythmia, unspecified | CPT/HCPCS: A0425; A0427; A0428 ==

== ENCOUNTER 2023-05-06 18:53 | Emergency (ER) | payer MEDICARE, SELFPAY ==
[2023-05-06] VITALS (7 sets, daily range): BP systolic 189–201; BP diastolic 84–95; PULSE 51–65; RESP 16; TEMP 35.6; O2SAT 94–98
--- NOTE | 2023-05-06 19:28 | CRLHL7_ITS ---
For Patients: As a result of the Century Cures Act, medical imaging exams and procedure reports are released immediately into your electronic medical record. You may view this report before your referring provider. If you have questions, please contact your health care provider. INDICATION: Right flank pain. TECHNIQUE: CT abdomen and pelvis without contrast. COMPARISON: None. FINDINGS: Lower chest: Mild bibasilar atelectasis. Mitral annular calcifications. Liver: Normal in size and attenuation. Gallbladder and bile ducts: No stones or inflammation. No biliary ductal dilatation. Spleen: Normal in size. Calcified granuloma. Adrenal glands: 1.3 cm right adrenal nodule. Left adrenal gland is unremarkable. Pancreas: Unremarkable. No mass or inflammation. Kidneys: Normal in size. Bilateral renal cysts. No stones or hydronephrosis. GI tract: Normal in caliber. No evidence of obstruction. 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 Moderate colonic stool load. Scattered colonic diverticula without evidence of diverticulitis. Normal appendix. Lymph nodes: No lymphadenopathy. Vasculature: Scattered atherosclerotic calcifications. Ectatic infrarenal abdominal aorta measuring up to 2.4 cm. Abdominal wall/Omentum/Peritoneum: Small fat containing umbilical hernia. No free air or significant free fluid. Pelvis: Unremarkable. Bones: Degenerative changes. Stepwise grade 1 anterolisthesis L4 on L5 and L5 on S1. IMPRESSION: 1. No acute abdominal or pelvic abnormality on this noncontrast examination. 2. No evidence of nephrolithiasis or urolithiasis. 3. 1.3 cm right adrenal nodule, indeterminate. Consider further characterization with nonemergent CT abdomen (adrenal mass protocol) if clinically warranted. 4. Scattered colonic diverticula without evidence of diverticulitis. 5. Other incidental findings as above. Please note that all CT scans at this facility use dose modulation, iterative reconstruction, and/or weight-based dosing when appropriate to reduce radiation dose to as low as reasonably achievable. Dictated by Eliecer Sykes MD @ 05/06/2023 9:26:25 PM (Electronically Signed)
--- NOTE | 2023-05-06 19:29 | ED_ITS ---
HPI - Back Pain/Injury General Chief Complaint: Back Injury/Pain Stated Complaint: Kidney pain Time Seen by Provider: 05/06/23 19:11 History of Present Illness HPI Narrative: This 87-year-old female comes in reporting right flank pain that began late this morning and is been present for about 7 or 8 hours. She does not report any injury event or strenuous activity. She states that the pain makes her want to score min try to find a more comfortable position. She has had some nausea but no vomiting. She does not report any symptoms of dysuria. She has not had a personal history of kidney stones but states that her sons have had kidney stones. Related Data Home Medications Medication Instructions Recorded Confirmed coenzyme Q10 30 mg capsule mg PO DAILY 03/29/22 04/24/23 ferrous sulfate 325 mg (65 mg mg PO DAILY 03/29/22 04/24/23 iron) tablet CQ10 110 mg PO DAILY 10/10/22 04/24/23 Vitamin C 65 mg PO DAILY 10/10/22 04/24/23 melatonin 5 mg capsule 5 mg PO .HS PRN 10/10/22 04/24/23 multivitamin 1 tab PO QAM 10/10/22 04/24/23 vit C 250 mg-vit E 90 mg-zinc 40 1 tab PO BID 01/11/23 04/24/23 mg-copper 1 [id number] capsule (PreserVision AREDS-2) metoprolol succinate 25 mg See Rx Instructions PO DAILY 04/24/23 tablet,extended release 24 hr Previous Rx's Medication Instructions Recorded sulfacetamide sodium (acne) 10 % 1 applic topical BID #118 mL 03/29/22 lotion (suspension) (Klaron) minocycline 100 mg capsule 100 mg PO BID #180 caps 07/12/22 rosuvastatin 40 mg tablet 40 mg PO DAILY Hyperlipidemia #90 10/25/22 tabs nirmatrelvir 150 mg-ritonavir 100 See Rx Instructions PO PER PKG DIR 01/11/23 mg tablets in a dose pack COVID 19 #20 ea (Paxlovid) apixaban 5 mg tablet 5 mg PO BID Atrial Fibrillation 04/24/23 #180 tabs metoprolol succinate 100 mg 100 mg PO QDAY Atrial Fibrillation 04/24/23 tablet,extended release 24 hr #90 tabs (Toprol XL) Allergies Allergy/AdvReac Type Severity Reaction Status Date / Time amiodarone AdvReac Severe Hypotension Verified 05/01/23 09:37 Review of Systems Status of ROS: Reports: 10 or more systems reviewed and unremarkable except as noted in History and below Narrative: Constitutional: No fevers, no weight gain or loss. Eyes: No discharge. No vision changes. HENT: No congestion, no sore throat, no ear pain. Cardiovascular: No chest pain, no palpitations. Respiratory: No shortness of breath, no wheezes, no cough. Gastrointestinal: No abdominal pain, no vomiting, no diarrhea. Right flank pain. Genitourinary: No dysuria, no hematuria. Musculoskeletal: Normal range of motion. Skin: No rashes, no pruritis. Neurological: No dizziness, weakness, sensory change, speech change. Endo/Heme/Allergies: No bruising or bleeding. No polydipsia. Pysch: no suicidality, no anxiety, no insomnia. All other systems reviewed and are negative. [facility] Medical History SVT (supraventricular tachycardia) ?I47.1 - Supraventricular tachycardia (ICD-10) Paroxysmal atrial fibrillation ?I48.0 - Paroxysmal atrial fibrillation (ICD-10) Hyperlipidemia ?E78.5 - Hyperlipidemia, unspecified (ICD-10) Atrial flutter ?I48.92 - Unspecified atrial flutter (ICD-10) Fracture of wrist ?S62.109A - Fracture of unspecified carpal bone, unspecified wrist, initial encounter for closed fracture (ICD-10) Knee pain ?M25.569 - Pain in unspecified knee (ICD-10) Wrist pain ?M25.539 - Pain in unspecified wrist (ICD-10) COVID-19 ?U07.1 - COVID-19 (ICD-10) 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 - Articular disc disorder of temporomandibular joint, unspecified side (ICD-10) Health care maintenance ?Z00.00 - Encounter for general adult medical examination without abnormal fi ndings (ICD-10) Surgical History 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 - Presence of unspecified artificial shoulder joint (ICD-10) History of hysterectomy ?Z90.710 - Acquired absence of both cervix and uterus (ICD-10) History of bunionectomy ?Z98.890 - Other specified postprocedural states (ICD-10) Social History Smoking Status: Never smoker How often do you have a drink containing alcohol: never How often do you have six or more drinks on one occasion: Never AUDIT-C Alcohol total score: 0 Non-prescribed substance use: denies use Little interest or pleasure in doing things: several days Feeling down, depressed, or hopeless: nearly every day Exam Narrative: Exam Narrative: Constitutional: Well-developed, well-nourished, no acute distress. HEENT: Normocephalic, atraumatic. Neck: Normal range of motion. Nontender. Supple. Heart: Regular. No murmurs. Normal rate. Intact distal pulses. Lungs: Clear to auscultation. No chest discomfort. No wheezes, rhonchi, or rales. Abdomen: Normal bowel sounds. Nontender. No rebound tenderness. Genitalia: Deferred. Back: No midline tenderness. Normal range of motion. Pain when percussing over the right flank region. Extremities: Normal range of motion. No injury. Skin: Intact. No rash. Warm. No erythema or pallor. Neurologic: No altered sensation. No weakness. Alert and oriented. Psychiatric: No suicidality. No anxiety or depression. No insomnia. Nursing notes and vitals signs are reviewed. Const: Vital Signs, click to edit/add: Vital Signs - 24 hr 05/06/23 19:11 Temperature 96.0 F L Pulse Rate [Left P ulse Oximeter] 60 Respiratory Rate 16 Blood Pressure [Ri ght Upper Arm] 201/84 H Pulse Oximetry 98 Oxygen Delivery Me thod Room Air Course Vital Signs Vital signs: Initial Vital Signs Temperature 96.0 F L 05/06/23 19:11 Temperature Source Temporal Artery Scan 05/06/23 19:11 Pulse Rate 60 05/06/23 19:11 Pulse Rhythm Regular 05/06/23 19:11 Respiratory Rate 16 05/06/23 19:11 Blood Pressure 201/84 H 05/06/23 19:11 Blood Pressure Mean 123 H 05/06/23 19:11 Blood Pressure Position Sitting 05/06/23 19:11 Pulse Oximetry 98 05/06/23 19:11 Oxygen Delivery Method Room Air 05/06/23 19:11 Vital Signs Temperature 96.0 F L 05/06/23 19:11 Pulse Rate 60 05/06/23 19:11 Respiratory Rate 16 05/06/23 19:11 Blood Pressure 201/84 H 05/06/23 19:11 Pulse Oximetry 98 05/06/23 19:11 Oxygen Delivery Method Room Air 05/06/23 19:11 Temperature 96.0 F L 05/06/23 19:11 Pulse Rate 60 05/06/23 19:11 Respiratory Rate 16 05/06/23 19:11 Blood Pressure 201/84 H 05/06/23 19:11 Pulse Oximetry 98 05/06/23 19:11 Oxygen Delivery Method Room Air 05/06/23 19:11 MDM - Back Pain/Injury MDM Narrative Medical decision making narrative: This patient comes in with right flank pain that makes her want to squirm and has some associated nausea but no vomiting. These symptoms are suspicious for kidney stone however she has never had 1 personally. She does not describe any urinary symptoms. The urinalysis and CT scan of the abdomen and pelvis without contrast is ordered and results are pending at the end of my shift. The I did offer pain and nausea medicines initially with the patient and she declined them stating that she is feeling okay for now. Dr. Alanis will look after results and proceed accordingly. ECG Data Attestation: I personally reviewed and interpreted this ECG as follows: Interpretation: Normal sinus rhythm. Rate is 65 beats per minute. There is incomplete left bundle branch block. There are no specific ST or T-wave abnormalities. Discharge Plan Discharge Clinical Impression: Acute right flank pain Prescriptions: No Action coenzyme Q10 30 mg capsule PO DAILY ferrous sulfate 325 mg (65 mg iron) tablet PO DAILY sulfacetamide sodium (acne) [Klaron] 10 % suspension 1 applic topical BID Qty: 118 3RF minocycline 100 mg capsule 100 mg PO BID Qty: 180 2RF multivitamin Tablet 1 tab PO QAM melatonin 5 mg capsule 5 mg PO .HS PRN Vitamin C 65 mg PO DAILY CQ10 110 mg PO DAILY metoprolol succinate 25 mg tablet extended release 24 hr See Rx Instructions PO DAILY Rx Instructions: 100 mg (1 tab) orally daily; metoprolol succinate [Toprol XL] 100 mg tablet extended release 24 hr 100 mg PO QDAY Qty: 90 3RF apixaban 5 mg tablet 5 mg PO BID Qty: 180 3RF rosuvastatin 40 mg tablet 40 mg PO DAILY Qty: 90 3RF PreserVision AREDS-2 250-90-40-1 mg capsule 1 tab PO BID Paxlovid 150-100 mg tablets,dose pack See Rx Instructions PO PER PKG DIR Qty: 20 0RF Rx Instructions: PO PER PKG DIR Follow Up/Referrals: Jaret Sanchez MD [Primary Care Provider] -
[2023-05-06 19:48] LABS: Appearance Urine Slightly Cloudy (Clear); Bilirubin Urine Negative (Negative); Blood Urine Negative (Negative); Color Urine Yellow (Yellow); Glucose Urine Negative (Negative); Ketones Urine Negative (Negative); Leukocyte Esterase Urine Trace (Negative); Nitrite Urine Negative (Negative); Protein Urine Trace (Negative); Specific Gravity Urine 1.025 (1.000-1.030); Urobilinogen Urine 0.2 (0.2-1.0)
[2023-05-06 19:56] LABS: RBC Urine 0-2 (0-2); Squamous Epithelial Cell Urine Few (None-Few)
[2023-05-06] MEDS: ACETAMINOPHEN 500 MG TABLET 1000 MG PO (20:58)
== END 2023-05-06 22:02 | disposition home or self-care (01) ==
PROVIDERS: Emergency Medicine Emergency Medical Services; Emergency Provider Family Medicine; PCP Internal Medicine
DX: R10.9 Unspecified abdominal pain (principal)
CPT/HCPCS: 74176; 81001; 93005; 99284; A9270

== ENCOUNTER 2023-05-07 15:20 | Emergency (ER) | payer MEDICARE, SELFPAY ==
[2023-05-07 15:26] VITALS: BP 147/114; PULSE 62; RESP 14; TEMP 35.6; O2SAT 96; BMI 29.2
--- NOTE | 2023-05-07 15:48 | CRLHL7_ITS ---
For Patients: As a result of the Century Cures Act, medical imaging exams and procedure reports are released immediately into your electronic medical record. You may view this report before your referring provider. If you have questions, please contact your health care provider. INDICATION: Right lower quadrant pain.. TECHNIQUE: CT abdomen and pelvis acquired with 83 cc Isovue 370 IV contrast. COMPARISON: None. FINDINGS: Lower chest: Unremarkable. Liver: Unremarkable. Normal in size and attenuation. No suspicious masses. Gallbladder and bile ducts: Mild thickening at fundus may represent adenomyomatosis. No stones or inflammation. No biliary dilatation. Pancreas: Unremarkable. No mass or inflammation. Spleen: Unremarkable. Normal in size. No masses. Adrenal glands: 1.3 centimeter right adrenal gland nodule, indeterminate. Kidneys: Bilateral interpolar region cysts. No hydronephrosis or hydroureter. No renal stones identified. GI tract: No bowel obstruction. Scattered colonic diverticula. Lipoma within the gastric wall. Tiny hiatal hernia. Appendix is within normal limits. Vasculature: Abdominal aorta is normal in caliber. Mesenteric arteries are patent. Diffuse moderate calcific atherosclerosis. Lymph nodes: No lymphadenopathy. Peritoneum/Abdominal Wall: Unremarkable. No sign of mass or infiltration. No free air or significant free fluid. Pelvis: Status post hysterectomy. Bladder is unremarkable. Bones: Diffuse demineralization of the visualized bones. Otherwise unremarkable for age. IMPRESSION: No acute intra-abdominal process identified. Appendix within normal limits. Stable indeterminate right adrenal gland nodule. Consider further evaluation with nonemergent adrenal protocol CT or MRI Please note that all CT scans at this facility use dose modulation, iterative reconstruction, and/or weight-based dosing when appropriate to reduce radiation dose to as low as reasonably achievable. Dictated by Ángela Marroquin MD @ 05/07/2023 6:31:53 PM (Electronically Signed)
--- NOTE | 2023-05-07 15:59 | ED_ITS ---
HPI - General Adult General Time Seen by Provider: 15:59 Date Seen: 05/07/23 Chief complaint: Back Injury/Pain Stated complaint: back pain increasing Time Seen by Provider: 05/07/23 15:21 Source: patient Mode of arrival: ambulatory Limitations: no limitations History of Present Illness HPI narrative: Patient is an 87-year-old female with history of paroxysmal a flutter and AFib on Eliquis presented emergency department for right low back and right lower abdominal pain. She says the pain started yesterday. She came into emergency department yesterday and was checked for kidney stone and was negative. She had a urinalysis that showed a possible UTI and was started on antibiotics. She will sent home with pain medication. She states the medication is not helping with the pain she struck larger dosing causative vomit. She states she vomited twice in total. She states she is not feeling nauseated at this time. Denies headache, chest pain, shortness of breath, vision changes, weakness, numbness, saddle anesthesia, loss of bowel or bladder control. She still has her appendix. She states she came back because she cannot take the pain medication cyst causing her nausea and she is wondering if lab work which show anything further. She is concern for appendicitis. Related Data Home Medications Medication Instructions Recorded Confirmed coenzyme Q10 30 mg capsule mg PO DAILY 03/29/22 04/24/23 ferrous sulfate 325 mg (65 mg mg PO DAILY 03/29/22 04/24/23 iron) tablet CQ10 110 mg PO DAILY 10/10/22 04/24/23 Vitamin C 65 mg PO DAILY 10/10/22 04/24/23 melatonin 5 mg capsule 5 mg PO .HS PRN 10/10/22 04/24/23 multivitamin 1 tab PO QAM 10/10/22 04/24/23 vit C 250 mg-vit E 90 mg-zinc 40 1 tab PO BID 01/11/23 04/24/23 mg-copper 1 [id number] capsule (PreserVision AREDS-2) metoprolol succinate 25 mg See Rx Instructions PO DAILY 04/24/23 tablet,extended release 24 hr Previous Rx's Medication Instructions Recorded sulfacetamide sodium (acne) 10 % 1 applic topical BID #118 mL 03/29/22 lotion (suspension) (Klaron) minocycline 100 mg capsule 100 mg PO BID #180 caps 07/12/22 rosuvastatin 40 mg tablet 40 mg PO DAILY Hyperlipidemia #90 10/25/22 tabs nirmatrelvir 150 mg-ritonavir 100 See Rx Instructions PO PER PKG DIR 01/11/23 mg tablets in a dose pack COVID 19 #20 ea (Paxlovid) apixaban 5 mg tablet 5 mg PO BID Atrial Fibrillation 04/24/23 #180 tabs metoprolol succinate 100 mg 100 mg PO QDAY Atrial Fibrillation 04/24/23 tablet,extended release 24 hr #90 tabs (Toprol XL) cephalexin 500 mg capsule 500 mg PO TID 5 days #15 caps 05/06/23 Allergies Allergy/AdvReac Type Severity Reaction Status Date / Time amiodarone AdvReac Severe Hypotension Verified 05/01/23 09:37 Review of Systems Status of ROS: Reports: 10 or more systems reviewed and unremarkable except as noted in History and below [facility] Medical History SVT (supraventricular tachycardia) ?I47.1 - Supraventricular tachycardia (ICD-10) Paroxysmal atrial fibrillation ?I48.0 - Paroxysmal atrial fibrillation (ICD-10) Hyperlipidemia ?E78.5 - Hyperlipidemia, unspecified (ICD-10) Atrial flutter ?I48.92 - Unspecified atrial flutter (ICD-10) Fracture of wrist ?S62.109A - Fracture of unspecified carpal bone, unspecified wrist, initial encounter for closed fracture (ICD-10) Knee pain ?M25.569 - Pain in unspecified knee (ICD-10) Wrist pain ?M25.539 - Pain in unspecified wrist (ICD-10) COVID-19 ?U07.1 - COVID-19 (ICD-10) 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 - Articular disc disorder of temporomandibular joint, unspecified side (ICD-10) Health care maintenance ?Z00.00 - Encounter for general adult medical examination without abnormal findings (ICD-10) Surgical History 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 - Presence of unspecified artificial shoulder joint (ICD-10) History of hysterectomy ?Z90.710 - Acquired absence of both cervix and uterus (ICD-10) History of bunionectomy ?Z98.890 - Other specified postprocedural states (ICD-10) Social History Smoking Status: Never smoker How often do you have a drink containing alcohol: never How often do you have six or more drinks on one occasion: Never AUDIT-C Alcohol total score: 0 Non-prescribed substance use: denies use Little interest or pleasure in doing things: several days Feeling down, depressed, or hopeless: nearly every day Exam Narrative: Exam Narrative: Const: Well-nourished, Well-developed, in mild distress Eyes: PERRL, no conjunctival injection, and symmetrical lids ENMT: Atraumatic external nose and ears. Moist mucous membranes. Neck: Symmetric, trachea midline, No thyromegaly. CVS: RRR, No murmurs or gallops. Peripheral pulses 2+ and equal in all extremities RESP: Unlabored respiratory effort. Clear to auscultation bilaterally. GI: Mild right lower quadrant tenderness. Nondistended, No rebound or guarding. MSK:Extremities w/o deformity, Normal Active ROM Skin: Warm, Dry. No rashes or lesions. Neuro: Normal Muscle tone, No focal neurological deficits. Psych: Awake, Alert, & Oriented x3. Appropriate mood and affect. Const: Vital Signs, click to edit/add: Vital Signs - 24 hr 05/07/23 15:26 05/07/23 16:34 05/07/23 17:02 Temperature 96.0 F L Pulse Rate 55 L 59 L Pulse Rate [Pulse Oximeter] 62 Respiratory Rate 14 12 12 Blood Pressure 176/73 H 156/86 H Blood Pressure [Ri ght Upper Arm] 147/114 H Pulse Oximetry 96 92 96 Oxygen Delivery Me thod Room Air 05/07/23 17:33 05/07/23 18:02 05/07/23 19:02 Temperature Pulse Rate 61 61 57 L Pulse Rate [Pulse Oximeter] Respiratory Rate 12 14 14 Blood Pressure 187/87 H 192/91 H 183/76 H Blood Pressure [Ri ght Upper Arm] Pulse Oximetry 95 97 94 Oxygen Delivery Me thod Course Vital Signs Vital signs: Initial Vital Signs Temperature 96.0 F L 05/07/23 15:26 Temperature Source Temporal Artery Scan 05/07/23 15:26 Pulse Rate 62 05/07/23 15:26 Pulse Rhythm Regular 05/07/23 15:26 Respiratory Rate 14 05/07/23 15:26 Blood Pressure 147/114 H 05/07/23 15:26 Blood Pressure Mean 125 H 05/07/23 15:26 Blood Pressure Position Sitting 05/07/23 15:26 Pulse Oximetry 96 05/07/23 15:26 Oxygen Delivery Method Room Air 05/07/23 15:26 Vital Signs Temperature 96.0 F L 05/07/23 15:26 Pulse Rate 62 05/07/23 15:26 Respiratory Rate 14 05/07/23 15:26 Blood Pressure 147/114 H 05/07/23 15:26 Pulse Oximetry 96 05/07/23 15:26 Oxygen Delivery Method Room Air 05/07/23 15:26 Temperature 96.0 F L 05/07/23 15:26 Pulse Rate 57 L 05/07/23 19:02 Respiratory Rate 14 05/07/23 19:02 Blood Pressure 183/76 H 05/07/23 19:02 Pulse Oximetry 94 05/07/23 19:02 Oxygen Delivery Method Room Air 05/07/23 15:26 Medical Decision Making MDM Narrative Medical decision making narrative: Patient is an 87-year-old female presented emergency room for back pain right lower quadrant abdominal pain. Patient's pain started yesterday she came to emergency department that time had CT scan without contrast done which showed no acute abnormalities. She was sent home with pain medication for which tried to take it because there nausea and vomiting. She states the pain starts in her back and radiates to the right lower quadrant. She has concern for appendicitis. Denies fevers or chills. Has had normal bowel movements. To the patient's worsening right lower quadrant pain there is concern for appendicitis still despite the noncontrast CT we will order a CT scan with IV contrast today. Also ordered CBC and BMP. Patient morphine for pain and Zofran for nausea. Patient's lab work returns show no concerning abnormalities. She is already on antibiotics for UTI and I do not believe is necessary to repeat the urinalysis at this time. CT scan returned showing no acute abnormalities. Her pain might be referred from spinal stenosis or similar lumbar spine causes. Most her pain she states is midline that is where the pain starts. She had negative straight leg test on both side so unlikely to be herniated disc but cannot be definitively ruled out. Patient will be discharged home and should follow up with the primary care provider tomorrow. I have given her prescription for Zofran to take with her pain medications. She is agreeable to this plan. Lab Data Labs: Lab Results 05/07/23 Range/Units 16:26 WBC 7.68 (4.50-11.00) K/uL RBC 5.22 H (4.00-5.20) m/uL Hgb 14.3 (12.0-16.0) gm/dL Hct 44.1 (33.0-51.0) % MCV 85 (80-100) fL MCH 27 (26-34) pg MCHC 32 (32-36) gm/dL RDW Coeff of Luther 13.6 (11.5-15.5) % Plt Count 184 (140-440) K/uL Neut % (Auto) 77.6 H (42.0-72.0) % Lymph % (Auto) 13.3 L (20-44) % Mcculloch % (Auto) 8.1 (0.0-11.0) % Eos % (Auto) 0.5 (0.0-7.0) % Baso % (Auto) 0.1 (0.0-3.0) % Neut # (Auto) 6.00 (1.7-7.0) K/uL Lymph # (Auto) 1.00 (0.90-2.90) K/uL Mcculloch # (Auto) 0.60 (0.00-0.90) K/UL Eos # (Auto) 0.04 (0.00-0.50) K/uL Baso # (Auto) 0.01 (0.00-0.30) K/uL Abs Immat Gran (auto) 0.03 (0.00-0.30) K/uL Imm/Tot Granulo (auto) 0.4 % Sodium 135 (135-149) mmol/L Potassium 4.0 (3.6-5.1) mmol/L Chloride 98 (96-114) mmol/L Carbon Dioxide 30 (20-32) mmol/L BUN 14 (7-30) mg/dL Creatinine 0.5 (0.5-1.5) mg/dL Estimated Creat Clear 35.52 Estimated GFR 92 ml/min Glucose 133 H (60-115) mg/dL Calcium 9.9 (8.4-10.6) mg/dL Discharge Plan Discharge Clinical Impression: Back pain Qualifiers: Back pain location: low back pain Chronicity: acute Back pain laterality: midline Sciatica presence: without sciatica Qualified Code(s): M54.50 - Low back pain, unspecified Abdominal pain Qualifiers: Abdominal location: right lower quadrant Qualified Code(s): R10.31 - Right lower quadrant pain Patient Disposition: Home, Self-Care Condition: Stable Instructions: Acute Low Back Pain (ED) Additional Instructions: Keep your appointment with Dr. Sanchez tomorrow. Take the Zofran 15-20 minutes before you take your pain medication and also take pain medication with food. Return for new or worsening symptoms. Prescriptions: No Action coenzyme Q10 30 mg capsule PO DAILY ferrous sulfate 325 mg (65 mg iron) tablet PO DAILY sulfacetamide sodium (acne) [Klaron] 10 % suspension 1 applic topical BID Qty: 118 3RF minocycline 100 mg capsule 100 mg PO BID Qty: 180 2RF multivitamin Tablet 1 tab PO QAM melatonin 5 mg capsule 5 mg PO .HS PRN Vitamin C 65 mg PO DAILY CQ10 110 mg PO DAILY metoprolol succinate 25 mg tablet extended release 24 hr See Rx Instructions PO DAILY Rx Instructions: 100 mg (1 tab) orally daily; metoprolol succinate [Toprol XL] 100 mg tablet extended release 24 hr 100 mg PO QDAY Qty: 90 3RF apixaban 5 mg tablet 5 mg PO BID Qty: 180 3RF cephalexin 500 mg capsule 500 mg PO TID 5 Days Qty: 15 0RF rosuvastatin 40 mg tablet 40 mg PO DAILY Qty: 90 3RF PreserVision AREDS-2 250-90-40-1 mg capsule 1 tab PO BID Paxlovid 150-100 mg tablets,dose pack See Rx Instructions PO PER PKG DIR Qty: 20 0RF Rx Instructions: PO PER PKG DIR Follow Up/Referrals: Jaret Sanchez MD [Primary Care Provider] - Stand Alone Forms: MyHealth Info Instructions
[2023-05-07 16:34] VITALS: BP 176/73; PULSE 55; RESP 12; O2SAT 92
[2023-05-07 16:39] LABS: Basophils Absolute Auto 0.01 K/uL (0.00-0.30); Basophils Percent Auto 0.1 % (0.0-3.0); Eosinophils Absolute Auto 0.04 K/uL (0.00-0.50); Eosinophils Percent Auto 0.5 % (0.0-7.0); Hematocrit 44.1 % (33.0-51.0); Hemoglobin* 14.3 gm/dL (12.0-16.0); Immature Granulocytes Abs Auto 0.03 K/uL (0.00-0.30); Immature Granulocytes Pct Auto 0.4 %; Lymphocytes Percent Auto 13.3 % (20-44); Mean Corpuscular HGB Conc 32 gm/dL (32-36); Mean Corpuscular Hemoglobin 27 pg (26-34); Mean Corpuscular Volume 85 fL (80-100); Monocytes Percent Auto 8.1 % (0.0-11.0); Neutrophils Percent Auto 77.6 % (42.0-72.0); Platelet Count* 184 K/uL (140-440); RDW Coefficient of Variation % 13.6 % (11.5-15.5); Red Blood Count 5.22 m/uL (4.00-5.20); Slide Review Reflex No; White Blood Count* 7.68 K/uL (4.50-11.00)
[2023-05-07 16:51] LABS: Chloride* 98 mmol/L (96-114); Sodium* 135 mmol/L (135-149)
[2023-05-07 16:54] LABS: Blood Urea Nitrogen* 14 mg/dL (7-30); Calcium* 9.9 mg/dL (8.4-10.6); Carbon Dioxide* 30 mmol/L (20-32); Creatinine* 0.5 mg/dL (0.5-1.5); Est. Creatinine Clearance* 35.52; Estimated Glomerular Filt Rate 92 ml/min; Glucose* 133 mg/dL (60-115)
[2023-05-07 17:02] VITALS: BP 156/86; PULSE 59; RESP 12; O2SAT 96
[2023-05-07 17:33] VITALS: BP 187/87; PULSE 61; RESP 12; O2SAT 95
[2023-05-07 18:02] VITALS: BP 192/91; PULSE 61; RESP 14; O2SAT 97
[2023-05-07] MEDS: MORPHINE 4 MG/ML INJ IVP (18:38)
[2023-05-07] MEDS: ONDANSETRON 2 MG/ML inj 4 MG IVP (18:38)
[2023-05-07 19:02] VITALS: BP 183/76; PULSE 57; RESP 14; O2SAT 94
== END 2023-05-07 19:13 | disposition home or self-care (01) ==
PROVIDERS: Emergency Provider Student in an Organized Health Care Education/Training Program; PCP Internal Medicine
DX: M54.50 Low back pain, unspecified (principal); R10.9 Unspecified abdominal pain
CPT/HCPCS: 36415; 74177; 80048; 85025; 96374; 96375; 99283; 99284; 99285; J2270; J2405; Q9967

== ENCOUNTER 2023-06-29 10:45 | Outpatient (RCR) | payer MEDICARE, SELFPAY ==
--- NOTE | 2023-06-05 17:23 | PT.OPEX ---
PT [place] Outpatient Eval PT [facility] Outpatient Eval Start: 06/01/23 14:54 Freq: Status: Active Protocol: Document 06/01/23 14:54 TASIA (Rec: 06/01/23 15:06 TASIA [id number]) E-signed By Madiha Shah DPT Physical Therapy Outpatient Evaluation Insurance Information Recert Due Date 08/30/23 Insurance Name Medicare B,Other; See Comments Insurance Information/Comments AARP Medical Diagnosis abdominal muscle defect, ventral hernia Treating Diagnosis R sided abdominal pain, R sided trunk/back pain, core/ abdominal weakness, limited tolerance for extended standing/walking activities Subjective Subjective Patient reports onset of R sided abdominal pain and back/ trunk pain back in April. She reports noticing an area of soreness and protrusion leading to a couple of ED visits back in April/May. States she had imaging done in the ED and follow up with Dr De La Cruz in [place]. She was told it was a hernia. She ordered an abdominal binder to help support the area. She is using tylenol as needed for pain. Overall, states that the pain has been decreasing but still some mild soreness at times. Pain range 0-3/10. She reports increased back/ trunk pain with extended standing/walking. She is active and states she can be on her feet for 2-3 hours before starting to get sore and needing a break. She tried ice/heat and states heat has been more helpful. She reports some recent medical issues with A-fib with the start of some new medications and more cardiac follow up scheduled. She has a follow up with her primary MD, Dr Sanchez on Jun 12. She has been doing [employer] exercise group 2x/week and is thinking about starting some pool exercises as well. She reports a fall in April with wrist injury. Denies any other falls, she does not use an AD for ambulation. Hx L TSA about 5 years ago. Date of Last Physician Visit 05/18/23 Date of Next Physician Visit 06/12/23 Current Work Status Retired Assessment Assessment/Impression Patient is an 87 year old female with R sided abdominal pain, R sided back/trunk pain, core/abdominal weakness, limited tolerance for extended standing/walking activities. Pain range 0-3/10. Patient with a visible and palpable bulge in area of R lateral trunk. She reports having CT scans in the ED. MD told her she has a hernia. She will follow up with her primary MD, Dr Sanchez, on Jun 12. She denies tenderness with palpation of R back/trunk region. States pain has been decreasing over the last few weeks. She has an abdominal binder to use as needed for support. Patient was referred to PT for core/abdominal strengthening. She is moving independently, amb without AD. She denies pain this session . Able to initiate a home exercise program for the patient this session. She is comfortable continuing with these exercises for a couple of weeks and then returning to PT for additional progression of HEP as able. She is planning to continue with silver sneakers program 2x/ week and thinking about starting a pool exercise program as well. Patient would benefit from skilled PT for pain/sx management, general core/trunk/back/ abdominal strengthening, posture/body mechanics training, and establishment of a HEP. Plan of Care Rehabilitation Potential Good Physical Therapy Goals 1. Decrease/maintain R sided abdominal pain and R sided trunk/back pain at less than/ equal to 3/10 with daily activities and with the progression of PT activities over the next 6-8 weeks. 2. Patient will be educated on posture/body mechanics and pain management strategies over the next 6-8 weeks for decreased stress on R abdomin/trunk and decreased R sided abdominal pain and R sided trunk/back pain. 3. Improve core/trunk/ abdominal strength and posture over the next 10-12 weeks for improved posture, decreased stress on R sided abdomin/trunk/back, decreased R abdominal/trunk/back pain, and return to full activities per PLF without flare up of pain/sx. 4. Patient will be I with HEP within 12 weeks for progression toward above goals, ongoing self management of pain/sx, ongoing self improvements in core/trunk/abdominal strength, posture/body mechanics, and for return to full daily activities per PLF without flare up of pain/sx. Coordination/Communication With Referral Source Treatment Plan/Direct Interventions Manual Therapy,Therapeutic Exercises Frequency/Duration 3-4x/month Patient Will Be Discharged From Therapy Completion of LTG(s),Skills Plateau,Independent w/HEP, Independently Progressing Evaluation Billing Untimed Code Treatment Minutes 24 Complexity Moderate Certification Information Initial Certification Date 06/01/23 Ending Certification Date 08/30/23 Provider Signature Shows Agreement With POC & Medical Necessity Physician Signature & Date Requested Please Sign/Date Here Physician Comment/Change : Physician NPI Number #
== END 2023-09-18 15:06 | disposition home or self-care (01) ==
PROVIDERS: PCP Internal Medicine; Visit Provider Family Medicine
DX: K43.9 Ventral hernia without obstruction or gangrene (principal); M62.9 Disorder of muscle, unspecified; R10.9 Unspecified abdominal pain; M54.9 Dorsalgia, unspecified; R53.1 Weakness; Z74.09 Other reduced mobility; Z51.89 Encounter for other specified aftercare
CPT/HCPCS: 97110; 97162

== ENCOUNTER 2023-07-10 19:35 | Outpatient (CLI) | payer MEDICARE, SELFPAY ==
--- NOTE | 2023-07-18 12:09 | W.PM.SLEEP ---
Sleep Study Details Details Interpreting Provider: Jeanie Date of Sleep Study: 07/10/23 Sleep Study Details: STUDY TYPE:? Home unattended ? BMI:? 29.3 ORDERING PROVIDER:? Daniel INDICATION:? Concerns about sleep apnea ? SLEEP SUMMARY:? 537.9 minutes monitored RESPIRATORY SUMMARY:? AHI 45.8. Note the entire study was done supine Low oxygen 78 21.2% of study oxygen less than 90% Snoring 10% PERIODIC LIMB MOVEMENTS OF SLEEP:? Not recorded during home study CARDIAC:? Range 52-91 beats per minute, mean 59.7 beats per minute IMPRESSION:? Severe obstructive sleep apnea RECOMMENDATION: Treatment options include either in-lab titration versus AutoSet CPAP pressure 4-17. Once effective therapy is established patient should have an overnight oximetry performed.
== END 2023-07-10 19:36 | disposition home or self-care (01) ==
LOC: SLEEP 19:37
PROVIDERS: PCP Internal Medicine; Visit Provider Internal Medicine
DX: G47.33 Obstructive sleep apnea (adult) (pediatric) (principal)
CPT/HCPCS: 95806

== ENCOUNTER 2023-08-29 10:22 | Outpatient (CLI) | payer MEDICARE, SELFPAY ==
[2023-08-29 10:55] LABS: Creatinine* 0.7 mg/dL (0.5-1.5); Estimated Glomerular Filt Rate 84 ml/min
--- NOTE | 2023-08-29 11:00 | CRLHL7_ITS ---
For Patients: As a result of the Century Cures Act, medical imaging exams and procedure reports are released immediately into your electronic medical record. You may view this report before your referring provider. If you have questions, please contact your health care provider. INDICATION: Ventral hernia. Right-sided abdominal pain. TECHNIQUE: CT abdomen and pelvis acquired with 86 cc Isovue 370 IV contrast. COMPARISON: None. FINDINGS: Lower chest: Unremarkable. Liver: Unremarkable. Normal in size and attenuation. No suspicious masses. Gallbladder and bile ducts: Unremarkable. No stones or inflammation. No biliary dilatation. Pancreas: Unremarkable. No mass or inflammation. Spleen: Unremarkable. Normal in size. No masses. Adrenal glands: Stable 1.3 cm indeterminate right adrenal nodule. Kidneys: Unremarkable. No suspicious masses, stones, or hydronephrosis. GI tract: Unremarkable. Normal in caliber. No sign of mass or inflammation. Normal appendix. Vasculature: Abdominal aorta is normal in caliber. Mesenteric arteries are patent. Lymph nodes: No lymphadenopathy. Peritoneum/Abdominal Wall: Unremarkable. No sign of mass or infiltration. No free air or significant free fluid. Pelvis: Unremarkable. Bones: Unremarkable for age. IMPRESSION: No acute abnormality and no changes from the prior exam. No sign of ventral hernia or other explanation for right-sided abdominal pain. Please note that all CT scans at this facility use dose modulation, iterative reconstruction, and/or weight-based dosing when appropriate to reduce radiation dose to as low as reasonably achievable. Dictated by Prabhjot Nolen MD @ 08/30/2023 3:44:54 PM (Electronically Signed)
== END 2023-08-29 10:23 | disposition home or self-care (01) ==
LOC: CT 10:23
PROVIDERS: PCP Internal Medicine; Visit Provider Internal Medicine
DX: K43.9 Ventral hernia without obstruction or gangrene (principal); R10.9 Unspecified abdominal pain
CPT/HCPCS: 36415; 74177; 82565; Q9967

== ENCOUNTER 2023-10-27 09:20 | Outpatient (CLI) | payer MEDICARE, SELFPAY ==
--- OUTSIDE RECORDS SUMMARY | 2023-11-01 11:58 | XMS_ITS | Encounter Summary ---
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 Gender Identity Not on file Sexual Orientation Not on file documented as of this encounter Plan of Treatment Not on file documented as of this encounter Procedures Procedure Name Priority Date/Time Associated Diagnosis Comments LAB VITAMIN B12 Routine 07/18/2019 9:27 AM CDT LAB FOLATE (REFERRAL) Routine 07/18/2019 8:22 AM CDT documented in this encounter Results * LAB VITAMIN B12 (07/18/2019 9:27 AM CDT) VITAMIN B12 544 232-1,245 pg/mL 07/18/2019 8:47 PM CDT [facility] Blood 07/18/2019 9:27 AM CDT 07/18/2019 8:01 PM CDT Devon Larsen MD CHEMISTRY ORDERABLES [facility] [address] [place] [address] * LAB FOLATE (REFERRAL) (07/18/2019 8:22 AM CDT) FOLATE >20.0 >=4.0 mcg/L 07/19/2019 3:17 PM CDT [facility] Comment: Test Performed by: [facility] [address] [place] [address] Beater Out: Cristo Cash M.D. Ph.D.; CLIA# [id number] Blood 07/18/2019 8:22 AM CDT 07/18/2019 7:54 PM CDT Devon Larsen MD REFERRAL ORDERABLES [facility] documented in this encounter Visit Diagnoses Not on filedocumented in this encounter Care Teams Buggy Man Relationship Specialty Start Date End Date Giancarlo Pineda PCP - General 11/29/21 documented as of this encounter
--- OUTSIDE RECORDS SUMMARY | 2023-11-01 11:58 | XMS_ITS | Clinical Summary ---
Author Name Unknown Organization [employer] [facility] Address [place], [place] [address] Care Team Providers Care Pile Operator Name Role Phone [facility] Primary [facility] Provider + Allergies No known active allergies Medications Medication Sig Dispensed Refills Start Date End Date Status apixaban (ELIQUIS) 5 mg tablet Take 5 mg by mouth two times daily. 0 Active minocycline (MINOCIN) 100 mg tablet Take 100 mg by mouth two times daily. 0 Active rosuvastatin (CRESTOR) 40 mg tablet Take 40 mg by mouth once daily. 0 Active iron,carbonyl-ricarda min C (Vitron-C) 65 mg iron- 125 mg Delayed-Release tablet Take 1 Tablet by mouth once daily in the evening. 0 Active multivitamin folic acid 0.4 mg Take 1 Tablet by mouth once daily in the evening. 0 Active coenzyme q10 (Co Q-10) 100 mg cap Take 100 mg by mouth once daily in the evening. 0 Active acetaminophen (TYLENOL EXTRA STRGTH) 500 mg tablet Take 1,000 mg by mouth every 6 hours if needed for Pain. Max acetaminophen dose: 4000mg in 24 hrs. 0 Active vit A/vit C/vit E/zinc/copper (PRESERVISION AREDS ORAL) Take 1 Capsule by mouth once daily in the evening. 0 Active metoprolol succinate (TOPROL XL) 100 mg Sustained-Release tabletIndications: Atrial fibrillation with RVR (HC) Take 0.5 Tablets (50 mg) by mouth once daily. 45 Tablet 3 06/12/2023 Active sotaloL (BETAPACE) 80 mg tabletIndications: Atrial fibrillation with RVR (HC) Take 1 Tablet (80 mg) by mouth every 12 hours. 180 Tablet 3 06/12/2023 Active Active Problems Problem Noted Date Diagnosed Date Hyperlipidemia 04/19/2023 Insomnia 04/19/2023 Paroxysmal atrial fibrillation 04/19/2023 SVT (supraventricular tachycardia) 04/19/2023 Atrial fibrillation with RVR 04/19/2023 Subclinical hypothyroidism 04/19/2023 Adjustment disorder with anxiety 04/15/2021 ARABELLA (obstructive sleep apnea) 04/15/2021 Overview: [place]: PSG 10/15/20: mild to moderate with incomplete titration. Family History Relation Name Status Comments Father Mother Social History Tobacco Use Types Packs/Day Years Used Date Smoking Tobacco: Never Smokeless Tobacco: Never Tobacco Cessation:Counseling Given: Not Answered Alcohol Use Standard Drinks/Week Comments Yes 1 (1 standard drink = 0.6 oz pur e alcohol) Social Connections Answer Date Recorded Frequency of Communication with Friends and Fami ly Not on file 04/19/2023 Sex and Gender Information Value Date Recorded Sex Assigned at Not on file Gender Identity Not on file Sexual Orientation Not on file Obstetrics History Last Filed Vital Signs Vital Sign Reading Time Taken Comments Blood Pressure 152/70 06/09/2023 1:06 PM CDT Pulse 61 06/09/2023 1:06 PM CDT Temperature 36.8 ??C (98.3 ??F) 05/01/2023 11:50 PM C DT Respiratory Rate 18 06/09/2023 1:06 PM CDT Oxygen Saturation 98% 06/09/2023 1:06 PM CDT Inhaled Oxygen Concentration - - Weight 78.9 kg (174 lb) 06/09/2023 1:06 PM CDT Height 162.6 cm (5' 4) 06/09/2023 1:06 PM CDT Body Mass Index 29.87 06/09/2023 1:06 PM CDT Plan of Treatment Health Maintenance Due Date Last Done Comments Pneumococcal series for age 65+ (1 of 2 - PCV) 1943 Tdap 1948 Depression screening for age 12+ 1949 Tetanus booster 1957 Zoster (shingles) series for age 50+ (1 of 2) 1987 DEXA/DXA scan for age 65+ 2002 Medicare Wellness for age 65+ 2002 COVID-19 vaccine series ( season) 2023 08/05/2022, 03/30/2022, 08/05/2021, Additional history exists Influenza for age 65+ 06/02/2023 BMI (ht and wt on same day) for age 18+ 06/09/2024 06/09/2023 Advance Directives Latest Code Status on File Code Status Date Activated Date Inactivated Comments DNR 05/01/2023 12:33 PM 05/02/2023 2:10 PM Question Answer Comments Code Status Discussion: Reviewed Preferences Code Status History Code Status Date Activated Date Inactivated Comments DNR 04/19/2023 2:24 AM 04/20/2023 1:26 PM DNR/D NI confirmed with patient Question Answer Comments Code Status Discussion: Reviewed Preferences Full Code 04/19/2023 1:32 AM 04/19/2023 2:24 AM Question Answer Comments Code Status Discussion: Reviewed Preferences Care Teams Pile Operator Relationship Specialty Start Date End Date [facility] . PCP - General 05/02/23
--- OUTSIDE RECORDS SUMMARY | 2023-11-01 11:58 | XMS_ITS | Clinical Summary ---
Author Name Unknown Organization [employer] Address [address] [place] [address] Care Team Providers Care Auto Mechanics Teacher Name Role Phone NelsonGiancarlo muhammad Primary Care Provider Curt schilling Source Comments If you need additional information that is not available on Care Everywhere, please contact our Medical Records Department during business hours (Monday - Monday, 8 am - 5 pm) at . During nonbusiness hours, please contact our Trauma and Emergency Center at .[employer] [facility] Allergies No known active allergies Medications * Medications may not be up to date as of this document. Always verify current medications with the patient. Medication Sig Dispensed Refills Start Date End Date Status metroNIDAZOLE (METROGEL) 0.75 % gel Apply 1 Application 2 times daily 0 09/18/2020 Active triamcinolone acetonide (KENALOG) 0.1 % cream Apply Twice daily as needed 0 02/11/2020 Active iron,carbonyl-vitamin C (VITRON-C) 65 mg iron- 125 mg tablet Take 1 Tablet by mouth daily 0 Active coenzyme Q10 100 mg capsule Take 100 mg by mouth 2 times daily 0 Active multivitamin tablet Take 1 Tablet by mouth daily 0 Active escitalopram (LEXAPRO EQUIVALENT) 10 mg tablet Take 1 Tablet (10 mg) by mouth daily 1/2 tablet bedtime for 10 days and then increase to 1 tablet. 90 Tablet 3 06/22/2021 Active apixaban (ELIQUIS) 5 mg tabletIndications:pre vent thromboembolism in chronic atrial fibrillation Take 1 Tablet (5 mg) by mouth 2 times daily For: treatment to prevent blood clots in chronic atrial fibrillation 180 Tablet 3 06/22/2021 Active rosuvastatin (CRESTOR) 40 mg tabletIndications:hyp erlipidemia Take 1 Tablet (40 mg) by mouth daily For: excessive fat in the blood 90 Tablet 3 06/22/2021 Active metoprolol succinate (TOPROL XL) 25 mg extended release tablet Take 1 Tablet (25 mg) by mouth every morning 90 Tablet 3 06/22/2021 Active Active Problems Problem Noted Date Diagnosed Date Tension headache 06/22/2021 Osteopenia of necks of both femurs 06/22/2021 Overview: 2018 DEXA: Worse T = -1.0; Ventricular ectopy 06/22/2021 Prediabetes 04/17/2021 ARABELLA (obstructive sleep apnea) 04/15/2021 Overview: [place]: PSG 10/15/20: mild to moderate with incomplete titration. History of Doppler echocardiogram 04/15/2021 Overview: 03/06/20 Normal LV, EF 65%, no RWMA, normal valves. Adjustment disorder with anxiety 04/15/2021 Paroxysmal atrial fibrillation Insomnia Taking multiple medications for chronic disease Iron deficiency Hyperlipidemia Resolved Problems Problem Noted Date Diagnosed Date Resolved Date Restless leg syndrome 2020 Immunizations Name Administration Dates Next Due Influenza 07/05/2018, 6,07/28/2015,2013,06/24/2013,06/25/2012,07/29/2008 Influenza A H1N1 09/16/2009 Influenza PF 06/28/2011,07/14/2010 Influenza Quadrivalent 07/03/2019 Influenza Quadrivalent High Dose 07/28/2020 Influenza Trivalent Adjuvanted 07/04/2017 Influenza, Unspecified 07/16/2014,2011,06/16/2011,2008 Moderna SARS-CoV-2 (12 yrs and older) 12/10/2020 ,11/13/2020 Pneumococcal Conjugate PCV13 2016 Tdap 04/15/2015 Surgical History Surgery Date Site/Laterality Comments WRIST FRACTURE TX HYSTERECTOMY TOTAL SHOULDER ARTHROPLASTY BUNIONECTOMY Medical History Medical History Date Comments Paroxysmal atrial fibrillation (*) Insomnia Type 2 diabetes mellitus, wi thout long-term current use of insulin (*) Taking medication for chronic disease Restless leg syndrome Iron deficiency Snoring Hyperlipidemia Taking multiple medications for chronic disease History of Doppler echocardiogram 04/15/2021 Prediabetes 04/17/2021 Osteopenia of necks of both femurs 06/22/2021 Ventricular ectopy 06/22/2021 Social History Tobacco Use Types Packs/Day Years Used Date Smoking Tobacco: Never Smokeless Tobacco: Never Depression (GHS) Answer Date Recorded Depression Screening Score: 0 06/03 PHQ-4 TOTAL SCORE 0 06/22/2021 PHQ9 Not on file 06/22/2021 Suicide Risk Alert Not on file 06/22/2021 Sex and Gender Information Value Date Recorded Sex Assigned at Female 10/09/2020 2:59 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 Gender Identity Not on file Sexual Orientation Not on file Obstetrics History Last Filed Vital Signs Vital Sign Reading Time Taken Comments Blood Pressure 120/70 06/22/2021 12:44 PM CDT Pulse 52 06/22/2021 12:44 PM CDT Temperature 36.6 ??C (97.9 ??F) 06/22/2021 12:44 PM C DT Respiratory Rate 12 06/22/2021 12:44 PM CDT Oxygen Saturation 98% 06/22/2021 12:44 PM CDT Inhaled Oxygen Concentration - - Weight 79.4 kg (175 lb) 06/22/2021 12:44 PM CDT Height 162.6 cm (5' 4) 06/22/2021 12:44 PM CDT Body Mass Index 30.04 06/22/2021 12:44 PM CDT Plan of Treatment Health Maintenance Due Date Last Done Comments WELLNESS VISIT 1955 SHINGLES VACCINE (SHINGRIX) (1 of 2) 1987 RSV Vaccine (1 - 1-dose 60+ series) 1997 PNEUMOCOCCAL AGES 65 YEARS OR MORE (2 of 2 - PPSV23 or PCV20) 2017 2016 MAMMOGRAM 10/09/2020 10/09/2019 DIABETES SCREENING 04/15/2022 04/15/2021, 0 04/15/2021, 06/02/2020 DEPRESSION/ANXIETY PHQ4 06/22/2022 06/22/20, 06/22/2021, 06/22/2021, Additional history exists COVID-19 Vaccine ( - season) 2023 12/10/2020, 11/13/2020 INFLUENZA (#1) 2023 07/28/2020, 1011/2018, 07/05/2018, Additional history exists DTaP/Tdap/Td Vaccine (2 - Td or Tdap) 04/15/2025 04/15/2015 PERTUSSIS Completed 04/15/2015 COLONOSCOPY Discontinued 12/04/2017 POLIO (IPV) Vaccine Aged Out No longe r eligible based on patient's age to complete this topic Care Teams Auto Mechanics Teacher Relationship Specialty Start Date End Date Giancarlo Pineda PCP - General 11/29/21
--- OUTSIDE RECORDS SUMMARY | 2023-11-01 11:58 | XMS_ITS | Encounter Summary ---
Author Name Unknown Organization [facility] Address [address] [place] [id number] Care Team Providers Care Sister Superior Name Role Phone Giancarlo Pineda Primary Care Provider Curt schilling Encounter Details Date Type Department Care Team Description 07/18/[address] [facility] [address] [place] [address] Devon Larsen MD [address] [place], [place] [id number] Social History Tobacco Use Types Packs/Day Years Used Date Smoking Tobacco: Never Assessed Sex and Gender Information Value Date Recorded Sex Assigned at Female 10/09/2020 2:59 PM CARE ASST Gender Identity Not on file Sexual Orientation Not on file documented as of this encounter Plan of Treatment Not on file documented as of this encounter Results * LAB VITAMIN B12 (07/18/2019 9:27 AM CDT) VITAMIN B12 544 232-1,245 pg/mL 07/18/2019 8:[address] [facility] Blood 07/18/2019 9:27 AM CDT 07/18/2019 8:01 PM CDT Devon Larsen MD CHEMISTRY ORDERABLES [facility] [address] [place] [address] * LAB FOLATE (REFERRAL) (07/18/2019 8:22 AM CDT) FOLATE >20.0 >=4.0 mcg/L 07/19/2019 3:17 PM CDT [facility] Comment: Test Performed by: [facility] [address] [place] [address] Planning Consultant: Cristo Cash M.D. Ph.D.; CLIA# [id number] Blood 07/18/2019 8:22 AM CDT 07/18/2019 7:54 PM CDT Devon Larsen MD REFERRAL ORDERABLES [facility] documented in this encounter Visit Diagnoses Not on filedocumented in this encounter Care Teams Sister Superior Relationship Specialty Start Date End Date Giancarlo Pineda PCP - General 11/29/21 documented as of this encounter
== END 2023-10-27 09:21 | disposition home or self-care (01) ==
LOC: NFLDREF 11-01 11:42
PROVIDERS: PCP Internal Medicine; Referring Provider Internal Medicine; Visit Provider Internal Medicine
DX: E78.5 Hyperlipidemia, unspecified (principal); E11.9 Type 2 diabetes mellitus without complications; D50.9 Iron deficiency anemia, unspecified; Z79.01 Long term (current) use of anticoagulants
CPT/HCPCS: 80053; 80061

== ENCOUNTER 2024-05-17 08:32 | Outpatient (CLI) | payer MEDICARE, SELFPAY ==
--- OUTSIDE RECORDS SUMMARY | 2024-05-17 13:15 | XMS_ITS | Encounter Summary ---
Author Organization [facility] Address [address] [place] [address] Care Team Providers Care Bacon Skinner Name Role Phone Giancarlo Pineda Primary Care Provider Curt schilling Encounter Details Date Type Department Care Team ([facility] st Contact Info) Description 07/18/2019 Lab Requisition GL LINK [address] [place], [place] [id number] Devon Larsen MD [address] [place] [id number] Social History Tobacco Use Types Packs/Day Years Used Date Smoking Tobacco: Never Assessed Sex and Gender Information Value Date Recorded Sex Assigned at Female 10/09/2020 2:59 PM 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 Gender Identity Not on file Sexual Orientation [...] 544 232-1,245 pg/mL 07/18/2019 8:47 PM CDT [facility] Blood 07/18/2019 9:27 AM CDT 07/18/2019 8:01 PM CDT Dveon Larsen MD CHEMISTRY ORDERABLES [facility] [place] [address] * LAB FOLATE (REFERRAL) (07/18/2019 8:22 AM CDT) FOLATE >20.0 >=4.0 mcg/L 07/19/2019 3:17 PM CDT [facility] Comment: Test Performed by: [facility] [address] [place] [address] Farm Crops Teacher: Cristo Cash M.D. Ph.D.; CLIA# [id number] Blood 07/18/2019 8:22 AM CDT 07/18/2019 7:54 PM CDT Devon Larsen MD REFERRAL ORDERABLES Performing Organization Address City/[facility] Co de Phone Number [facility] documented in this encounter Visit Diagnoses Not on filedocumented in this encounter Care Teams Bacon Skinner Relationship Specialty Start Date End Date Giancarlo Pineda PCP - General 11/29/21 documented as of this encounter
--- OUTSIDE RECORDS SUMMARY | 2024-05-17 13:15 | XMS_ITS | Encounter Summary ---
Author Organization [facility] and [facility] Address [address] [place] [address] Care Team Providers Care Principal Software Engineer Name Role Phone Giancarlo Pineda Primary Care Provider Curt schilling Encounter Details Date Type Department Care Team (Late st Contact Info) Description 07/18/[address] [facility] [address] [place] [address] Devon Larsen MD [address] [place], [place] [id number] Social History Tobacco Use Types Packs/Day Years Used Date Smoking Tobacco: Never Assessed Sex and Gender Information Value Date Recorded Sex Assigned at Female 10/09/2020 2:59 PM CERTIFICATION ENGINEER Gender Identity Not on file Sexual Orientation Not on file documented as of this encounter Plan of Treatment Not on file documented as of this encounter Results * LAB VITAMIN B12 (07/18/2019 9:27 AM CDT) VITAMIN B12 544 232-1,245 pg/mL 07/18/2019 8:47 PM CDT [facility] Blood 07/18/2019 9:27 AM CDT 07/18/2019 8:01 PM CDT Devon Larsen MD CHEMISTRY ORDERABLES [facility] [address] [place] [address] * LAB FOLATE (REFERRAL) (07/18/2019 8:22 AM CDT) FOLATE >20.0 >=4.0 mcg/L 07/19/2019 3:17 PM CDT [facility] Comment: Test Performed by: [facility] [address] [place] [id number] Racing Mechanic: Cristo Cash M.D. Ph.D.; CLIA# [id number] Blood 07/18/2019 8:22 AM CDT 07/18/2019 7:54 PM CDT Deovn Larsen MD REFERRAL ORDERABLES [facility] documented in this encounter Visit Diagnoses Not on filedocumented in this encounter Care Teams Principal Software Engineer Relationship Specialty Start Date End Date Giancarlo Pineda PCP - General 11/29/21 documented as of this encounter
--- OUTSIDE RECORDS SUMMARY | 2024-05-17 13:15 | XMS_ITS | Clinical Summary ---
Author Organization [facility] [facility] Address [place], [place] [address] Care Team Providers Care Podiatric Surgeon Name Role Phone [facility] Primary Care Provider + Allergies No known active allergies Medications Medication Sig Dispensed Refills Start Date End Date Status apixaban (ELIQUIS) 5 mg tablet Take 5 mg by mouth two times daily. Active minocycline (MINOCIN) 100 mg tablet Take 100 mg by mouth two times daily. Active rosuvastatin (CRESTOR) 40 mg tablet Take 40 mg by mouth once daily. Active iron,carbonyl-ricarda min C (Vitron-C) 65 mg iron- 125 mg Delayed-Release tablet Take 1 Tablet by mouth once daily in the evening. Active multivitamin folic acid 0.4 mg Take 1 Tablet by mouth once daily in the evening. Active coenzyme q10 (Co Q-10) 100 mg cap Take 100 mg by mouth once daily in the evening. Active acetaminophen (TYLENOL EXTRA STRGTH) 500 mg tablet Take 1,000 mg by mouth every 6 hours if needed for Pain. Max acetaminophen dose: 4000mg in 24 hrs. Active vit A/vit C/vit E/zinc/copper (PRESERVISION AREDS ORAL) Take 1 Capsule by mouth once daily in the evening. Active metoprolol succinate (TOPROL XL) 100 mg [...] Health Maintenance Due Date Last Done Comments Tdap 1948 Depression screening for age 12+ 1949 Tetanus booster 1957 Zoster (shingles) series for age 50+ (1 of 2) 1987 DEXA/DXA scan for age 65+ 2002 Medicare Wellness for age 65+ 2002 Pneumococcal series for age 65+ (1 of 1 - PCV) 2002 COVID-19 vaccine series (2022-24 season) 2023 08/05/2022, 03/30/2022, 08/05/2021, Additional history exists Influenza for age 65+ 06/02/2024 BMI (ht and wt on same day) for age 18+ 06/09/2024 06/09/2023 Advance Directives * DNR (Latest Code Status on File) Date Activated Date Inactivated Comments 05/01/2023 12:33 PM 05/02/2023 2:10 PM Question Answer Comments Code Status Discussion: Reviewed Preferences * DNR Date Activated Date Inactivated Comments 04/19/2023 2:24 AM 04/20/2023 1:26 PM DNR/DNI conf irmed with patient Question Answer Comments Code Status Discussion: Reviewed Preferences * Full Code Date Activated Date Inactivated Comments 04/19/2023 1:32 AM 04/19/2023 2:24 AM Question Answer Comments Code Status Discussion: Reviewed Preferences Care Teams Podiatric Surgeon Relationship Specialty Start Date End Date [facility]ir Ramirez [facility] . PCP - General 05/02/23
--- OUTSIDE RECORDS SUMMARY | 2024-05-17 13:15 | XMS_ITS | Clinical Summary ---
Author Organization [facility] Address [address] [place] [address] Care Team Providers Care Public Area Supervisor Name Role Phone Giancarlo Pineda Primary Care Provider Curt schilling Source Comments If you need additional information that is not available on Care Everywhere, please contact our Medical Records Department during business hours (Monday - Monday, 8 am - 5 pm) at . During nonbusiness hours, please contact our Trauma and Emergency Center at .[facility] and [facility] Allergies No known active allergies Medications * Medications may not be up to date as of this document. Always verify current medications with the patient. Medication Sig Dispensed Refills Start Date End Date Status metroNIDAZOLE (METROGEL) 0.75 % gel Apply 1 Application 2 times daily 09/18/2020 Active triamcinolone acetonide (KENALOG) 0.1 % cream Apply Twice daily as needed 02/11/2020 Active iron,carbonyl-vitamin C (VITRON-C) 65 mg iron- 125 mg tablet Take 1 Tablet by mouth daily Active coenzyme Q10 100 mg capsule Take 100 mg by mouth 2 times daily Active multivitamin tablet Take 1 Tablet by mouth daily Active escitalopram (LEXAPRO EQUIVALENT) 10 mg tablet [...] Osteopenia of necks of both femurs 06/22/2021 Overview (06/22/2021): 2018 DEXA: Worse T = -1.0; Ventricular ectopy 06/22/2021 Prediabetes 04/17/2021 ARABELLA (obstructive sleep apnea) 04/15/2021 Overview (04/15/2021): [place]: PSG 10/15/20: mild to moderate with incomplete titration. 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 Gender Identity Not on file Sexual Orientation [...] 06/22/2021, Additional history exists COVID-19 Vaccine ( season) 2023 12/10/2020, 11/13/2020 INFLUENZA (#1) 2024 07/28/2020, 11/2018, 07/05/2018, Additional history exists DTaP/Tdap/Td Vaccine (2 - Td or Tdap) 04/15/2025 04/15/2015 PERTUSSIS Completed 04/15/2015 COLONOSCOPY Discontinued 12/04/2017 HPV Vaccine Aged Out No longer eligi ble based on patient's age to complete this topic Hepatitis B Vaccine Aged Out No longe r eligible based on patient's age to complete this topic POLIO (IPV) Vaccine Aged Out No longe r eligible based on patient's age to complete this topic Procedures Procedure Name Priority Date/Time Associated Diagnosis Comments LAB HEMOGLOBIN A1C Today 04/15/2021 1: 55 PM CDT Type 2 diabetes mellitus without complication, without long-term current use of insulin (*) from Last 3 Months or Most Recently Relevant to Health Maintenance Results * (ABNORMAL) LAB HEMOGLOBIN A1C (04/15/2021 1:55 PM CDT) HEMOGLOBIN A1C 6.3(H) 4.0 - 5.6 % 04/15/2021 2:30 PM CDT [facility] ESTIMATED AVERAGE GLUCOSE 134 mg/dl 04/15/2021 2:30 PM CDT [facility] Blood 04/15/2021 1:55 PM CDT 04/15/2021 2:01 PM CDT Narrative [facility] - 04/15/2021 2:30 PM CDT Hemoglobin A1c values of 5.7-6.4% indicate an increased risk for developing diabetes mellitus. Hemoglobin A1c values greater than or equal to 6.5% are diagnostic for diabetes mellitus. In diabetic patients, HbA1c goals should be discussed with a healthcare provider. Devon Larsen MD CHEMISTRY ORDERABLES [facility] [address] [facility] [place] [address], [facility] [phone] from Last 3 Months or Most Recently Relevant to Health Maintenance Care Teams Public Area Supervisor Relationship Specialty Start Date End Date Giancarlo Pineda PCP - General 11/29/21
== END 2024-05-17 08:33 | disposition home or self-care (01) ==
LOC: NFLDREF 13:11
PROVIDERS: PCP Internal Medicine; Referring Provider Internal Medicine; Visit Provider Internal Medicine
DX: E78.5 Hyperlipidemia, unspecified (principal); E11.9 Type 2 diabetes mellitus without complications
CPT/HCPCS: 80053; 80061

== ENCOUNTER 2024-05-23 11:10 | Outpatient (CLI) | payer MEDICARE, SELFPAY ==
--- OUTSIDE RECORDS SUMMARY | 2024-05-27 19:45 | XMS_ITS | Encounter Summary ---
Author Organization [facility] and [facility] Address [address] [place] [address] Care Team Providers Care Sewing Demonstrator Name Role Phone Giancarlo Pineda Primary Care Provider Curt schilling Encounter Details Date Type Department Care Team (Late st Contact Info) Description 07/18/[address] [facility] [address] [place] [address] Devon Larsen MD [address] [place], [place] [address] Social History Tobacco Use Types Packs/Day Years Used Date Smoking Tobacco: Never Assessed Sex and Gender Information Value Date Recorded Sex Assigned at Female 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/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 Gender Identity Not on file Sexual Orientation Not on file documented as of this encounter Plan of Treatment Not on file documented as of this encounter Results * LAB VITAMIN B12 (07/18/2019 9:27 AM CDT) VITAMIN B12 544 232-1,245 pg/mL 07/18/2019 8:47 PM CDT [facility] Blood 07/18/2019 9:27 AM CDT 07/18/2019 8:01 PM CDT Devon Larsen MD CHEMISTRY ORDERABLES [facility] [address] [place] [address] * LAB FOLATE (REFERRAL) (07/18/2019 8:22 AM CDT) FOLATE >20.0 >=4.0 mcg/L 07/19/2019 3:17 PM CDT [facility] Comment: Test Performed by: [facility] [address] [place] [id number] Fibre Optics Jointer: Cristo Cash M.D. Ph.D.; CLIA# [id number] Blood 07/18/2019 8:22 AM CDT 07/18/2019 7:54 PM CDT Devon Larsen MD REFERRAL ORDERABLES [facility] documented in this encounter Visit Diagnoses Not on filedocumented in this encounter Care Teams Sewing Demonstrator Relationship Specialty Start Date End Date Giancarlo Pineda PCP - General 11/29/21 documented as of this encounter
--- OUTSIDE RECORDS SUMMARY | 2024-05-27 19:45 | XMS_ITS | Clinical Summary ---
Author Organization [employer] [facility] Address [place], [place] [address] Care Team Providers Care Wind Field Manager Name Role Phone [facility] Primary Care Provider + Allergies [...] Code Status Discussion: Reviewed Preferences Care Teams Wind Field Manager Relationship Specialty Start Date End Date [facility] . PCP - General 05/02/23
--- OUTSIDE RECORDS SUMMARY | 2024-05-27 19:45 | XMS_ITS | Encounter Summary ---
Author Organization [facility] Address [address] [place] [address] Care Team Providers Care Business Applications Analyst Name Role Phone Giancarlo Pineda Primary Care Provider Curt schilling Encounter Details Date Type Department Care Team ([facility] st Contact Info) Description 07/18/2019 Lab Requisition GL LINK [address] [place], [place] [id number] Devon Larsen MD [address] [place] [address] Social History Tobacco Use Types Packs/Day Years Used Date Smoking Tobacco: Never Assessed Sex and Gender Information Value Date Recorded Sex Assigned at Female 10/09/2020 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 Gender Identity Not on file Sexual Orientation [...] 544 232-1,245 pg/mL 07/18/2019 8:47 PM CDT [facility] Blood 07/18/2019 9:27 AM CDT 07/18/2019 8:01 PM CDT Devon Larsen MD CHEMISTRY ORDERABLES [facility] [place] [address] * LAB FOLATE (REFERRAL) (07/18/2019 8:22 AM CDT) FOLATE >20.0 >=4.0 mcg/L 07/19/2019 3:17 PM CDT [facility] Comment: Test Performed by: [facility] [address] [place] [address] Emergency Department Technician: Cristo Cash M.D. Ph.D.; CLIA# [id number] Blood 07/18/2019 8:22 AM CDT 07/18/2019 7:54 PM CDT Devon Larsen MD REFERRAL ORDERABLES Performing Organization Address City/[facility] Co de Phone Number [facility] documented in this encounter Visit Diagnoses Not on filedocumented in this encounter Care Teams Business Applications Analyst Relationship Specialty Start Date End Date Giancarlo Pineda PCP - General 11/29/21 documented as of this encounter
--- OUTSIDE RECORDS SUMMARY | 2024-05-27 19:45 | XMS_ITS | Clinical Summary ---
Author Organization [facility] Address [address] [place] [address] Care Team Providers Care Pig Machine Operator Name Role Phone Giancarlo Pineda Primary Care Provider Curt schilling Source Comments If you need additional information that is not available on Care Everywhere, please contact our Medical Records Department during business hours (Monday - Monday, 8 am - 5 pm) at . 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 Hemoglobin A1c values greater than or equal to 6.5% are diagnostic for diabetes mellitus. In diabetic patients, HbA1c goals should be discussed with a healthcare provider. Devon Larsen MD CHEMISTRY ORDERABLES [facility] [address] [facility] [place] [address], [facility] [phone] from Last 3 Months or Most Recently Relevant to Health Maintenance Care Teams Pig Machine Operator Relationship Specialty Start Date End Date Giancarlo Pineda PCP - General 11/29/21
== END 2024-05-23 11:11 | disposition home or self-care (01) ==
LOC: NFLDREF 05-27 19:43
PROVIDERS: PCP Internal Medicine; Referring Provider Internal Medicine; Visit Provider Internal Medicine
DX: R30.0 Dysuria (principal); I48.0 Paroxysmal atrial fibrillation; I48.92 Unspecified atrial flutter; E78.5 Hyperlipidemia, unspecified; F41.9 Anxiety disorder, unspecified; M85.80 Other specified disorders of bone density and structure, unspecified site; E11.9 Type 2 diabetes mellitus without complications
CPT/HCPCS: 87086

== ENCOUNTER 2025-01-14 09:32 | Outpatient (CLI) | payer MEDICARE, SELFPAY | END 2025-01-14 09:33 | disposition home or self-care (01) | PROVIDERS: PCP Internal Medicine; Visit Provider Family Medicine | DX: M85.80 Other specified disorders of bone density and structure, unspecified site (principal); E78.5 Hyperlipidemia, unspecified; I10 Essential (primary) hypertension; D50.9 Iron deficiency anemia, unspecified; I48.0 Paroxysmal atrial fibrillation | CPT/HCPCS: 80053; 80061; 82306; 82728; 83540; 83550 ==

== ENCOUNTER 2025-02-19 08:24 | Outpatient (CLI) | payer MEDICARE, SELFPAY ==
--- NOTE | 2025-02-19 09:00 | CRLHL7_ITS ---
For Patients: As a result of the Century Cures Act, medical imaging exams and procedure reports are released immediately into your electronic medical record. You may view this report before your referring provider. If you have questions, please contact your health care provider. Indication: ADRENAL NODULE Technique: Pre and postcontrast CT abdomen. Isovue 370 intravenous contrast used. 83 cc contrast utilized. Please note that all CT scans at this facility use dose modulation, iterative reconstruction, and/or weight-based dosing when appropriate to reduce radiation dose to as low as reasonably achievable. Comparison: 08/29/2023 Findings: Scarring/fibrotic change within both lung bases. Cardiomegaly. No intrahepatic mass. No calcified gallstone. Similar appearance of the gallbladder fundus. The spleen is not enlarged. Left adrenal gland is normal. Simple cyst arises from the lateral left kidney which measures 2.8 cm. Simple cyst posterior right kidney measures 2.5 cm. No hydronephrosis. Atherosclerotic changes with ectasia of the abdominal aorta measuring 2.6 cm. No adenopathy. No bowel obstruction. Chronic pancreatic calcifications. Chronic calcified splenic aneurysm. Grade 1 degenerative spondylolisthesis of L4 on L5. Degenerative disc disease L5-S1 with vacuum disc phenomenon. 1.5 cm right adrenal nodule. Precontrast Hounsfield units 44. 1 minute delayed Hounsfield units 66. 15 minute delayed Hounsfield units 67. However, this does appear similar to the prior study. Impression: Similar 1.5 cm right adrenal nodule. The washout characteristics are less than 50 percent suggesting that this is not a benign adenoma. Given the stability would consider continued follow-up. Please note that all CT scans at this facility use dose modulation, iterative reconstruction, and/or weight-based dosing when appropriate to reduce radiation dose to as low as reasonably achievable. Dictated by Luis Regan MD @ 02/19/2025 10:34:20 AM (Electronically Signed)
[2025-02-19 09:22] LABS: Creatinine* 0.7 mg/dL (0.5-1.5); Estimated Glomerular Filt Rate 84 ml/min
== END 2025-02-19 08:25 | disposition home or self-care (01) ==
LOC: CT 08:26
PROVIDERS: PCP Family Medicine; Visit Provider Family Medicine
DX: E27.9 Disorder of adrenal gland, unspecified (principal)
CPT/HCPCS: 36415; 74170; 82565; Q9967

== ENCOUNTER 2025-03-06 14:06 | Outpatient (CLI) | payer MEDICARE, SELFPAY | END 2025-03-06 14:07 | disposition home or self-care (01) | LOC: NFLDREF 14:07 | PROVIDERS: PCP Internal Medicine; Visit Provider Internal Medicine | DX: I10 Essential (primary) hypertension (principal); R42 Dizziness and giddiness | CPT/HCPCS: 80048 ==

== ENCOUNTER 2025-05-20 08:45 | Outpatient (CLI) | payer MEDICARE, SELFPAY | END 2025-05-20 08:46 | disposition home or self-care (01) | LOC: NFLDREF 05-27 19:02 | PROVIDERS: PCP Family Medicine; Referring Provider Family Medicine; Visit Provider Family Medicine | DX: I10 Essential (primary) hypertension (principal); M85.80 Other specified disorders of bone density and structure, unspecified site; E78.5 Hyperlipidemia, unspecified; E11.9 Type 2 diabetes mellitus without complications; D64.9 Anemia, unspecified | CPT/HCPCS: 80053; 80061; 82306; 82728 ==

== ENCOUNTER 2025-05-29 11:22 | Outpatient (CLI) | payer MEDICARE, SELFPAY ==
--- NOTE | 2025-05-29 13:30 | CRLHL7_ITS ---
For Patients: As a result of the Century Cures Act, medical imaging exams and procedure reports are released immediately into your electronic medical record. You may view this report before your referring provider. If you have questions, please contact your health care provider. DXA BONE MINERAL DENSITY STUDY Reason for exam: Osteopenia. Current height (in): 63. Weight (lb): 167. Menopause age: 62. Ethnicity: White. 1. Have you had a previous hip or vertebral fracture? No. 2. Have you had any fractures during your adult life which did not result from significant trauma (e.g., auto accident)? No. 3. Did either of your parents have a hip fracture? No. 4. Do you smoke? No. 5. Have you ever taken Glucocorticoids? No. 6. Do you have rheumatoid arthritis? No. 7. Do you have secondary osteoporosis? No. 8. Do you drink 3 or more alcoholic drinks per day? No. 9. Are you being treated for osteoporosis? No. 10. Have you ever taken any of the following medications: Actonel, Evista, Fosamax, Miacalcin, Reclast, Boniva, Forteo, HRT (i.e. estrogen/hormone therapy), Protelos, Prolia, Vitamin D, Calcium, other ??? please specify. ANSWER: Yes, calcium. 11. Do you have any of the following medical conditions: Anorexia or bulimia, asthma or emphysema, end stage renal disease, hyperparathyroidism, any seizure disorders, cancer, inflammatory bowel diseases, hysterectomy, other ??? please specify. ANSWER: Yes, hysterectomy. 12. What was your maximum height (inches)? 65. 13. Do you perform weight bearing exercise regularly? No. 14. Do you regularly consume dairy products? Yes. 15. Do you drink caffeinated beverages? Yes. 16. At what age did your period start? 17. 17. Are you premenopausal? No. 18. How many full-term pregnancies have you had? 4. 19. Have you ever missed your period for more than 6 months in a row (not including or menopause)? No. TECHNIQUE: Bone mineral density study was performed using the Guided Interventions. FINDINGS: The results of the study expressed as bone mineral density (BMD) are as follows: Lumbar spine L1 to L4: BMD: 1.022 g/cm2. T-score: -0.2. Z-score: 2.6. Neck Left: BMD: 0.717 g/cm2. T-score: -1.2. Z-score: 1.3. Right: BMD: 0.751 g/cm2. T-score: -0.9. Z-score: 1.6. Total Left: BMD: 0.966 g/cm2. T-score: 0.2. Z-score: 2.5. Right: BMD: 0.965 g/cm2. T-score: 0.2. Z-score: 2.5. IMPRESSION: Osteopenia. *Comparison exams done prior to 03/2020 were performed on different unit, Cloudy Days. FRAX 10-year Fracture Risk Major Osteoporotic Fracture: 11 percent Hip Fracture: 2.8 percent Reported Risk Factors: [place] () Neck BMD=0.717, BMI=29.6 Luis Regan M.D. Diagnostic Radiologist [email or web address] by: Luis Regan MD @ 05/29/2025 12:17:00 PM (Electronically Signed)
== END 2025-05-29 11:23 | disposition home or self-care (01) ==
LOC: RAD 11:22
PROVIDERS: PCP Family Medicine; Visit Provider Family Medicine
DX: M85.89 Other specified disorders of bone density and structure, multiple sites (principal); M81.0 Age-related osteoporosis without current pathological fracture
CPT/HCPCS: 77080

== ENCOUNTER 2025-06-05 08:15 | Outpatient (CLI) | payer MEDICARE, SELFPAY | END 2025-06-05 08:16 | disposition home or self-care (01) | LOC: NFLDREF 06-11 07:45 | PROVIDERS: PCP Family Medicine; Referring Provider Family Medicine; Visit Provider Family Medicine | DX: R79.89 Other specified abnormal findings of blood chemistry (principal); I10 Essential (primary) hypertension; D50.9 Iron deficiency anemia, unspecified | CPT/HCPCS: 80048; 82607; 82728; 83540; 83550 ==

== ENCOUNTER 2025-09-30 07:41 | Emergency (ER) | payer MEDICARE, SELFPAY ==
--- OUTSIDE RECORDS SUMMARY | 2025-09-30 07:43 | XMS_ITS | Clinical Summary ---
Author Organization [employer] [facility] Address [address] [place] [address] Care Team Providers Care Construction Technology Instructor Name Role Phone Jaret Sanchez MD Primary Care Provider [phone] Allergies No known active allergies Medications MedicationSigDispense QuantityRefillsLast FilledStart DateEnd DateStatus apixaban (ELIQUIS) 5 mg tablet Take 5 mg by mouth two times daily.Active minocycline (MINOCIN) 100 mg tablet Take 100 mg by mouth two times daily.Active rosuvastatin (CRESTOR) 40 mg tablet Take 40 mg by mouth once daily.Active iron,carbonyl-vitamin C (Vitron-C) 65 mg iron- 125 mg Delayed-Release tablet Take 1 Tablet by mouth once daily in the evening.Active multivitamin folic acid 0.4 mg Take 1 Tablet by mouth once daily in the evening.Active coenzyme q10 (Co Q-10) 100 mg cap Take 100 mg by mouth once daily in the evening.Active acetaminophen (TYLENOL EXTRA STRGTH) 500 mg tablet Take 1,000 mg by mouth every 6 hours if needed for Pain. Max acetaminophen dose: 4000mg in 24 hrs.Active vit A/vit C/vit E/zinc/copper (PRESERVISION AREDS ORAL) Take 1 Capsule by mouth once daily in the evening.Active metoprolol succinate (TOPROL XL) 100 mg Sustained-Release tablet Indications:Atrial fibrillation with RVR (HC)Take 0.5 Tablets (50 mg) by mouth once daily. 45 Tablet ctive sotaloL (BETAPACE) 80 mg tablet Indications:Atrial fibrillation with RVR (HC)Take 1 Tablet (80 mg) by mouth every 12 hours. 180 Tablet ctive Active Problems ProblemNoted DateDiagnosed FxjfMejrlxumdqtumc22/19/2893Soyxeetv30/19/2023 Paroxysmal atrial zqkvxlxyvleq72/19/2023SVT (supraventricular tachycardia) 04/19/2023trial fibrillation with RVR04/19/2023Subclinical hypothyroidism 04/19/2023djustment disorder with ptmvwhi3204/15/2021OSA (obstructive sleep apnea)04/15/2021 Overview (04/19/2023): [place]: PSG 10/15/20: mild to moderate with incomplete titration. Encounters DateTypeDepartmentCare PfhdZysjxcylrfk55/15/2025 9:45 AM CDTOffice Visit [facility] [address] [place], [place] [id number] Bry Mujica, YUE Foot Problem ([place] between Right great toe and 2nd digit, x10 Year Ago ) 07/16/2025Travelfrom Last 3 Months Family History RelationNameStatusCommentsFatherDeceasedMotherDeceased Social History Tobacco UseTypesPacks/DayYears UsedDateSmoking Tobacco: NeverSmokeless Tobacco: Never Tobacco Cessation:Counseling Given: Not Answered Alcohol UseStandard Drinks/WeekCommentsYes1 (1 standard drink = 0.6 oz pure alcohol)CommentsNoSex and Gender InformationValueDate RecordedSex Assigned at BirthNot on fileLegal NhqOrwbqk73/18/2023 3:53 PM CDTGender Identity Not on fileSexual OrientationNot on file Last Filed Vital Signs Vital SignReadingTime TakenCommentsBlood Hgqqbbpi319/8207/16/2025 9:35 AM CDT Wrirw984407/16/2025 9:35 AM MNOWlyhduidxpg98.8 ??C (98.3 ??F)05/01/2023 11:50 PM CDTRespiratory Crey134806/09/2023 1:06 PM CDTOxygen Nupegepufb47%07/16/2025 9:35 AM CDTInhaled Oxygen Concentration--Vynqbf99.8 kg (169 lb 4.8 oz)07/16/2025 9:35 AM SQBTajgaa570.6 cm (5' 4)06/09/2023 1:06 PM CDTBody Mass Index29.0606/09/2023 1:06 PM CDT Plan of Treatment Health MaintenanceDue DateLast DoneCommentsTetanus qktwcwk9506/14/1948Depression screening for age 12+1949Pneumococcal series for age 50+ (1 of 2 - PCV) 1956Zoster (shingles) series for age 50+ (1 of 2)1987DEXA/DXA scan for age 65+2002Medicare Wellness for age 65+2002RSV vaccine for adults or (1 - 1-dose 75+ series)2012MI (ht and wt on same day) for age 18+/OVID-19 vaccine series (2024- season) /11/2023, 07/09/2023, 08/05/2022, Additional history existsInfluenza Vaccine (#1)06/02/2025Hepatitis B series for 19+Aged OutNo longer eligible based on patient's age to complete this topic Insurance Advance Directives * DNR (Latest Code Status on File) Date ActivatedDate InactivatedComments05/01/2023 12:33 PM05/02/2023 2:10 PMQuestion AnswerCommentsCode Status Discussion:* Reviewed Preferences * DNR Date ActivatedDate InactivatedComments04/19/2023 2:24 AM04/20/2023 1:26 PMDNR/DNI confirmed with patientQuestionAnswerCommentsCode Status Discussion:* Reviewed Preferences * Full Code Date ActivatedDate InactivatedComments04/19/2023 1:32 AM04/19/2023 2:24 AMQuestion AnswerCommentsCode Status Discussion:* Reviewed Preferences Care Teams Team MemberRelationshipSpecialtyStart DateEnd Date Jaret Sanchez MD [address] [place], [place] [id number] PCP - GeneralInternal Medicine07/01/25
[2025-09-30 08:00] VITALS: BP 192/92; PULSE 66; RESP 18; TEMP 35.8; O2SAT 93; BMI 28.2
--- NOTE | 2025-09-30 08:20 | ED.GENADULT ---
HPI - General Adult General Chief complaint: Chest Pain Stated complaint: strange feeling in chest, high blood pressure Time Seen by Provider: 09/30/25 08:20 History of Present Illness HPI narrative: woke up this am and went to bathroom at 0500. went back to bed. felt pressure across chest, like indegestion but higher. took bp, was 193. still having funny feeling in chest. has had afib in the past. 89-year-old woman presenting to the emergency department with concern of a strange feeling in her chest and subsequently took her blood pressure noting it was elevated over 190 systolic. This feeling lasted about 45 minutes or so as not resolved upon presentation to the emergency department she was not short of breath no nauseated no are with diaphoresis. She does have a history of atrial fibrillation she does think that was this. Does have a history of a ?floating hernia? and notes that indigestion history and she is having some of that gesturing or palpating at her epigastrium. No cough. She just got concerned she says because she was old and was going to find herself alone at home today with persons going to work and others traveling. Related Data Home Medications ?Medication ?Instructions ?Recorded ?Confirmed CQ10 110 mg PO DAILY 10/10/22 10/07/25 multivitamin 1 tab PO QAM 10/10/22 10/07/25 vitamin D3 125 mcg (5,000 cap PO 08/26/25 10/07/25 unit)-vitamin K2 100 mcg capsule Previous Rx's ?Medication ?Instructions ?Recorded apixaban 5 mg tablet 5 mg PO BID Atrial Fibrillation 05/22/25 #180 tabs metoprolol succinate 25 mg 25 mg PO QDAY #90 tabs 05/22/25 tablet,extended release 24 hr (Toprol XL) rosuvastatin 40 mg tablet 40 mg PO DAILY Hyperlipidemia #90 05/22/25 tabs sotalol 80 mg tablet 80 mg PO BID Atrial Fibrillation 05/22/25 #180 tabs losartan 50 mg tablet 50 mg PO QDAY #90 tabs 10/07/25 Allergies Allergy/AdvReac Type Severity Reaction Status Date / Time No Known Drug Allergies Allergy Verified 10/07/25 08:57 Review of Systems Status of ROS: Reports: 6 or more systems reviewed and unremarkable except as noted in History and below [facility] Medical History (Updated 10/15/25 @ 13:03 by Angela Mckeon MD) H/O echocardiogram (10/15/25) ?Z92.89 - Personal history of other medical treatment (ICD-10) Rosacea ?L71.9 - Rosacea, unspecified (ICD-10) Right wrist fracture ?S62.101A - Fracture of unspecified carpal bone, right wrist, initial encounter for closed fracture (ICD-10) Abdominal pain ?R10.9 - Unspecified abdominal pain (ICD-10) Anxiety ?F41.9 - Anxiety disorder, unspecified (ICD-10) SVT (supraventricular tachycardia) ?I47.1 - Supraventricular tachycardia (ICD-10) Paroxysmal atrial fibrillation ?I48.0 - Paroxysmal atrial fibrillation (ICD-10) Hyperlipidemia ?E78.5 - Hyperlipidemia, unspecified (ICD-10) Fracture of wrist ?S62.109A - Fracture of unspecified carpal bone, unspecified wrist, initial encounter for closed fracture (ICD-10) Knee pain ?M25.569 - Pain in unspecified knee (ICD-10) Wrist pain ?M25.539 - Pain in unspecified wrist (ICD-10) COVID-19 ?U07.1 - COVID-19 (ICD-10) 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 - Articular disc disorder of temporomandibular joint, unspecified side (ICD-10) Surgical History History of total shoulder replacement (2018) ?Z96.619 - Presence of unspecified artificial shoulder joint (ICD-10) History of hysterectomy (1974) ?Z90.710 - Acquired absence of both cervix and uterus (ICD-10) History of bunionectomy (2001) ?Z98.890 - Other specified postprocedural states (ICD-10) Family History Pancreatic cancer Son Adopted person Social History Narrative: , 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, 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, 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, 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 4/ week exercise adrian sneakers 60 min never smoker 1 drink/ week What is your current living situation?: I presently have a place to live Problems where you live: no known problems and declined to answer In the past 12 months, utilities in danger of being shut off: no In past 12 months, lack of transportation kept you from medical appts, meetings, work, or getting things needed for daily living: no In the past 12 mos, have been you worried that your food would run out before you had money to buy more?: never true In the past 12 mos, the food you bought just didn't last and you didn't have money to buy more?: never true Smoking Status: Never smoker How often do you have a drink containing alcohol: never How often do you have six or more drinks on one occasion: Never AUDIT-C Alcohol total score: 0 Non-prescribed substance use: denies use How often does anyone, including family, friends and others, physically hurt you: never How often does anyone, including family, friends and others, insult or talk down to you: rarely How often does anyone, including family, friends and others, threaten you with harm: never How often does anyone, including family, friends and others, scream or curse at you: never Health Related Social Needs: Other personal risk factors, not elsewhere classified (Z91.89) Exam Narrative: Exam Narrative: Pleasant. NAD. Skin is warm and dry. Unusual auscultation of her heart I felt I was hearing some bowel sounds. Could not hear murmur. Occasional ectopic beat. Lungs appear to be clear. Abdomen is overweight soft nontender. Extremities are well perfused without notable edema. She is breathing easily. Const: Vital Signs, click to edit/add: Vital Signs - 24 hr 09/30/25 08:00 09/30/25 10:19 Temperature 96.5 F L 96.9 F L Pulse Rate [Pulse Oximeter] 66 58 L Respiratory Rate 18 18 Blood Pressure [Le ft Upper Arm] 192/92 H 183/105 H Pulse Oximetry 93 98 Oxygen Delivery Me thod Room Air Room Air Documenting provider has reviewed patient's vital signs: yes Course Vital Signs Vital signs: Initial Vital Signs Temperature 96.5 F L 09/30/25 08:00 Temperature Source Temporal Artery Scan 09/30/25 08:00 Pulse Rate 66 09/30/25 08:00 Respiratory Rate 18 09/30/25 08:00 Blood Pressure 192/92 H 09/30/25 08:00 Blood Pressure Mean 125 H 09/30/25 08:00 Blood Pressure Position Sitting 09/30/25 08:00 Pulse Oximetry 93 09/30/25 08:00 Oxygen Delivery Method Room Air 09/30/25 08:00 Vital Signs Temperature 96.5 F L 09/30/25 08:00 Pulse Rate 66 09/30/25 08:00 Respiratory Rate 18 09/30/25 08:00 Blood Pressure 192/92 H 09/30/25 08:00 Pulse Oximetry 93 09/30/25 08:00 Oxygen Delivery Method Room Air 09/30/25 08:00 Temperature 96.9 F L 09/30/25 10:19 Pulse Rate 58 L 09/30/25 10:19 Respiratory Rate 18 09/30/25 10:19 Blood Pressure 183/105 H 09/30/25 10:19 Pulse Oximetry 98 09/30/25 10:19 Oxygen Delivery Method Room Air 09/30/25 10:19 Medical Decision Making MDM Narrative Medical decision making narrative: This pressure that she is feeling certainly could be related to what sounds like hiatal hernia. Would check for any evidence of cardiac injury. Monitor for time for possible arrhythmia which could have contributed to symptoms as well. Possible mediastinum. At worst perhaps vascular dissection. No persistent respiratory symptoms to suggest I think pulmonary embolus or pneumonia. Indigestion? Monitor oximetry and monitoring analyst during time in the emergency department. Chest x-ray one view independently reviewed by me shows osteoarthritic, degenerative changes. I do not appreciate infiltrate or pneumothorax or large hiatal hernia. INDICATION: Upper chest pressure TECHNIQUE: Chest 1 view COMPARISON: 05/01/2023 FINDINGS: Degenerative changes at the right shoulder. Left shoulder replacement hardware. Old right-sided rib fracture deformities. Cardiac silhouette is enlarged. No acute CHF or infiltrate. IMPRESSION: No acute findings. Dictated by Luis Regan MD @ 09/30/2025 9:13:17 AM Labs are reassuring. I do return to sit and talk with Liz. We do see PVCs on her monitor. It is not clear that these are though symptomatic for her. Perhaps there were more frequent earlier? I do not think that needs to be on longer-term monitoring analyst at this point. Otherwise well without recurrence of this discomfort See patient discharge plan for further discussion I do not know if these premature ventricular contractions were what you are feeling earlier this morning. This could have been related to your floating hernia as well. I have not been able to confirm any injury to your heart nor other arrhythmia other than the PVCs as mentioned. Return for increase in and persistent chest pain particularly associated with shortness of breath, nausea, sweatiness. Medical Records Medical records reviewed: Yes I reviewed the patient's medical records Lab Data Labs: Lab Results 09/30/25 09/30/25 Range/Units 08:34 08:43 WBC 5.26 (4.50-11.00) K/uL RBC 4.81 (4.00-5.20) m/uL Hgb 13.6 (12.0-16.0) gm/dL Hct 42.9 (33.0-51.0) % MCV 89 (80-100) fL MCH 28 (26-34) pg MCHC 32 (32-36) gm/dL RDW Coeff of Luther 13.1 (11.5-15.5) % Plt Count 164 (140-440) K/uL Neut % (Auto) 64.4 (42.0-72.0) % Lymph % (Auto) 22.6 (20-44) % Reagan % (Auto) 9.5 (0.0-11.0) % Eos % (Auto) 2.3 (0.0-7.0) % Baso % (Auto) 0.4 (0.0-3.0) % Neut # (Auto) 3.39 (1.7-7.0) K/uL Lymph # (Auto) 1.19 (0.90-2.90) K/uL Reagan # (Auto) 0.50 (0.00-0.90) K/UL Eos # (Auto) 0.12 (0.00-0.50) K/uL Baso # (Auto) 0.02 (0.00-0.30) K/uL Abs Immat Gran (auto) 0.04 (0.00-0.30) K/uL Imm/Tot Granulo (auto) 0.8 % Sodium 140 (135-149) mmol/L Potassium 4.3 (3.6-5.1) mmol/L Chloride 101 (96-114) mmol/L Carbon Dioxide 34 H (20-32) mmol/L Anion Gap 5 L (7-15) mEq/L BUN 23 (7-30) mg/dL Creatinine 0.7 (0.5-1.5) mg/dL Estimated Creat Clear 33.58 Estimated GFR 83 ml/min Glucose 97 (60-115) mg/dL Calcium 10.0 (8.4-10.6) mg/dL POC Troponin I High Sensi 4.7 (2.9-13.0) pg/mL ECG Data Attestation: I personally reviewed and interpreted this ECG as follows: (normal sinus rhythm. partial left bundle. without acute ischemic changes. rate of 62) Discharge Plan Discharge Clinical Impression: Chest pain, Premature ventricular contraction Patient Disposition: Home w/ Parent or Adult Condition: Improved Additional Instructions: I do not know if these premature ventricular contractions were what you are feeling earlier this morning. This could have been related to your floating hernia as well. I have not been able to confirm any injury to your heart nor other arrhythmia other than the PVCs as mentioned. Return for increase in and persistent chest pain particularly associated with shortness of breath, nausea, sweatiness. Prescriptions: No Action losartan 50 mg tablet 50 mg PO QDAY Qty: 90 1RF multivitamin Tablet 1 tab PO QAM CQ10 110 mg PO DAILY rosuvastatin 40 mg tablet 40 mg PO DAILY Qty: 90 3RF apixaban 5 mg tablet 5 mg PO BID Qty: 180 3RF sotalol 80 mg tablet 80 mg PO BID Qty: 180 3RF metoprolol succinate [Toprol XL] 25 mg tablet extended release 24 hr 25 mg PO QDAY Qty: 90 3RF vitamin D3-vitamin K2 125 mcg (5,000 unit)-100 mcg capsule PO Follow Up/Referrals: Angela Mckeon MD [Primary Care Provider, Family Practice] Stand Alone Forms: [employer] Info Instructions
--- NOTE | 2025-09-30 08:38 | CRLHL7_ITS ---
For Patients: As a result of the Century Cures Act, medical imaging exams and procedure reports are released immediately into your electronic medical record. You may view this report before your referring provider. If you have questions, please contact your health care provider. INDICATION: Upper chest pressure TECHNIQUE: Chest 1 view COMPARISON: 05/01/2023 FINDINGS: Degenerative changes at the right shoulder. Left shoulder replacement hardware. Old right-sided rib fracture deformities. Cardiac silhouette is enlarged. No acute CHF or infiltrate. IMPRESSION: No acute findings. Dictated by Luis Regan MD @ 09/30/2025 9:13:17 AM (Electronically Signed)
[2025-09-30 08:55] LABS: Hematocrit* 42.9 % (33.0-51.0); Hemoglobin* 13.6 gm/dL (12.0-16.0); Immature Granulocytes Abs Auto 0.04 K/uL (0.00-0.30); Immature Granulocytes Pct Auto 0.8 %; Lymphocytes Absolute Auto 1.19 K/uL (0.90-2.90); Mean Corpuscular HGB Conc 32 gm/dL (32-36); Mean Corpuscular Hemoglobin 28 pg (26-34); Mean Corpuscular Volume 89 fL (80-100); RDW Coefficient of Variation % 13.1 % (11.5-15.5); Red Blood Count* 4.81 m/uL (4.00-5.20); White Blood Count* 5.26 K/uL (4.50-11.00)
[2025-09-30 09:01] LABS: Slide Review Reflex No
[2025-09-30 09:03] LABS: Chloride* 101 mmol/L (96-114); Potassium* 4.3 mmol/L (3.6-5.1); Sodium* 140 mmol/L (135-149)
[2025-09-30 09:06] LABS: Anion Gap 5 mEq/L (7-15); Blood Urea Nitrogen* 23 mg/dL (7-30); Calcium* 10.0 mg/dL (8.4-10.6); Carbon Dioxide* 34 mmol/L (20-32); Creatinine* 0.7 mg/dL (0.5-1.5); Est. Creatinine Clearance* 33.58; Estimated Glomerular Filt Rate 83 ml/min; Glucose* 97 mg/dL (60-115)
[2025-09-30 10:19] VITALS: BP 183/105; PULSE 58; RESP 18; TEMP 36.1; O2SAT 98
== END 2025-09-30 10:21 | disposition home or self-care (01) ==
PROVIDERS: Emergency Provider Family Medicine; PCP Family Medicine
DX: I49.3 Ventricular premature depolarization (principal)
CPT/HCPCS: 36415; 71045; 80048; 84484; 85025; 93005; 99284; 99285